=== PATIENT | female | born 1985 | race Caucasian/White ===

== ENCOUNTER 2025-02-14 06:29 | Emergency (ER) | payer OTHER, SELFPAY ==
--- OUTSIDE RECORDS SUMMARY | 2025-02-12 14:40 | XMS_ITS | Encounter Summary ---
Author Organization [facility] Address [address] [place] [address] Care Team Providers Care Computer Game Tester Name Role Phone Jamal Sharif MD Primary Care Provider [phone] Jamal Sharif MD Unavailable [phone] Reason for Referral * Consultation (Routine) - AuthorizedSpecialtyDiagnoses / ProceduresReferred By ContactReferred To ContactCardiology Diagnoses Heart palpitations Procedures [place] OFFICE/OUTPATIENT [facility] 60 MINUTES Sarah Oviedo NP [address] [place] [address] Phone: tel: fax: Sara Butcher MD [address] [place] [address], [address] [address] Phone: tel: fax: Referral IDStatusReasonStart DateExpiration DateVisits RequestedVisits [id number] Specialty Services Required / * Imaging (Routine) - Pending ReviewSpecialtyDiagnoses / ProceduresReferred By ContactReferred To ContactRadiology Diagnoses Heart palpitations Procedures Transthoracic Echo (TTE) Complete Sarah Oviedo NP [address] [place] [address] Phone: tel: fax: [facility] Centralized Scheduling [address] [place] [address] [place] [address] Phone: tel: fax: Referral IDSMihir DateExpiration DateVisits RequestedVisits [id number] Review Perform Procedure / Reason for Visit * ReasonCommentsDizzinessPt here today for dizziness, light headed, heart rate any time she stands up from a squat Encounter Details DateTypeDepartmentCare Team (Latest Contact Info)Zzuwbssxnlq17/28/2025 2:40 PM EDTOffice Visit [facility] [address] [place] [id number] Sarah Oviedo NP [address] [place] [address] PND (post-nasal drip) (Primary Dx); Congestion of nasal sinus; Sinus pressure; Heart palpitations Social History Tobacco UseTypesPacks/DayYears UsedDateSmoking Tobacco: FormerCigarettes Smokeless Tobacco: NeverAlcohol UseStandard Drinks/WeekCommentsYes2 (1 standard drink = 0.6 oz pure alcohol)Caffeine intake: 1 cups per day of coffee, [id number] Health LiteracyAnswerDate RecordedHow often do you need [...] relatives?Once a week11/07/2024How often do you attend amish or restorationism services?Never11/07/2024Do you belong to any clubs or organizations such as amish groups, unions, fraternal or athletic groups, or school groups?No 11/07/2024How often do you attend meetings of the clubs or organizations you belong to?Never11/07/2024re you , , , , never , or living with a partner?Icyhnhf4711/07/2024UDIT-CAnswerDate RecordedQ1: How often do you have a [...] hard at all11/07/2024PHQ-2AnswerDate Recorded Patient Health Questionnaire-2 Zrmdm853Finintermountain medical center [place] of Occupational Health - Occupational Stress QuestionnaireAnswerDate RecordedDo you feel stress - tense, restless, nervous, or anxious, or unable to sleep at night because your mind is troubled all the time - these days?Only a fbujug7411/07/2024Exercise Vital SignAnswerDate RecordedOn average, how many days [...] were you homeless or living in a [place] [facility] [place] (including now)?No11/07/2024CommentsNoSex and Gender InformationValueDate RecordedSex Assigned at BirthNot on fileLegal SexFemale 06/30/2022 7:22 PM EDTGender IdentityNot on fileSexual OrientationNot on file documented as of this encounter Last Filed Vital Signs Vital SignReadingTime TakenCommentsBlood Onlzmoio341/7810 2:46 PM EDT Gtvux425802/12/2025 2:46 PM XFRXepmejvrmqf10.9 ??C (98.4 ??F)02/12/2025 2:46 PM EDTRespiratory Rate--Oxygen Mhhybfjcmw56%02/12/2025 2:46 PM EDTInhaled Oxygen Concentration--Kjzkaf26.5 kg (142 lb 3.2 oz)02/12/2025 2:46 PM CJLGfdcak241.5 cm (5' 2 )02/12/2025 2:46 PM EDTBody Mass Index26.011 2:46 PM EDT documented in this encounter Functional Status * Over the past 2 weeks, how often have you been bothered by any of the following problems?QuestionAnswerDate of AssessmentAuthorLittle interest or pleasure in doing thingsNot at all02/12/2025 2:45 PM EDTMatty Trinheeling down, depressed, or hopelessNot at all02/12/2025 2:45 PM Everardo Rangel Patient Health Questionnaire-2 Dchbx371 2:45 PM Everardo Rangel documented as of this encounter Progress Notes * Sarah Oviedo, HAND I CUTTER - 02/12/2025 2:40 PM EDT Marisela Pacheco [...] no communication within 2 days, [facility]. Encouraged to [...] 11/05/2020 Influenza Vaccine (1) 12/17/2024 COVID-19 Vaccine (4 - 2024- season) 2024 [1] Allergies Allergen [...] Plan of Treatment DateTypeDepartmentCare Team (Latest Contact Info)Pgidftcpqjd56/05/2025 3:40 PM ESTOffice Visit [facility] [address] [place] [address] Sarah Oviedo NP [address] [place] [address] NameTypePriorityAssociated DiagnosesOrder ScheduleTransthoracic Echo (TTE) CompleteEchocardiographyRoutine Heart [...] Jamal Sharif MD [address] [place] [address] PCP - GeneralFamily Medicine09/27/22 Jamal Sharif MD [address] [place] [address] PCP - Medical [place] [employer]09/17/2411documented as of this encounter
[2025-02-14] VITALS (11 sets, daily range): BP systolic 112–126; BP diastolic 78–91; PULSE 80–124; TEMP 36.8; O2SAT 94–100; BMI 24.9
--- NOTE | 2025-02-14 07:04 | ECG_ITS ---
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 Measurements Intervals [place] Rate: 91 P: 63 UT: 132 QRS: 62 QRSD: 86 T: 54 QT: 354 QTc: 403 Interpretive Statements 1100 Sinus rhythm 2420 RSR (QR) in lead V1/V2, consistent with right ventricular conduction delay 9130 borderline ECG No previous ECG available for comparison Electronically Signed On 02-14-2025 13:17:02 EDT by MICHEAL VANEGAS M.D.
[2025-02-14 07:15] LABS: Hematocrit 41.1 % (36.0-48.0); Hemoglobin 14.1 g/dL (12.0-16.0); Immature Granulocytes Abs Auto 0.01 10^3/uL (0.00-0.03); Immature Granulocytes Pct Auto 0.1 % (0.0-0.5); Lymphocytes Absolute Auto 1.8 10^3/uL (1.2-3.8); Mean Corpuscular HGB Conc 34.3 g/dL (29.9-35.2); Mean Corpuscular Hemoglobin 30.0 pg (26.7-34.0); Mean Corpuscular Volume 87.4 fL (81.0-99.0); Platelet Count 376 10^3/uL (150-450); Red Blood Count 4.70 10^6/uL (4.20-5.40); White Blood Count 6.8 10^3/uL (4.0-11.0)
--- OUTSIDE RECORDS SUMMARY | 2025-02-14 07:19 | XMS_ITS | Encounter Summary ---
Author Organization [facility] Address [address] [place] [address] Care Team Providers Care Well Drill Operator Helper Cable Tool Name Role Phone Jamal Sharif MD Primary Care Provider [phone] Jamal Sharif MD Unavailable [phone] Encounter Details DateTypeDepartmentCare Team (Latest Contact Info)Qwtktddsazm66/28/2025Travel Social History Tobacco UseTypesPacks/DayYears UsedDateSmoking Tobacco: FormerCigarettes Smokeless Tobacco: NeverAlcohol UseStandard Drinks/WeekCommentsYes2 (1 standard drink = 0.6 oz pure alcohol)Caffeine intake: 1 cups per day of coffee, [id number] Health LiteracyAnswerDate RecordedHow often do you need [...] relatives?Once a week11/07/2024How often do you attend adventist or oriental orthodox services?Never11/07/2024Do you belong to any clubs or organizations such as adventist groups, unions, fraternal or athletic groups, or school groups?No 11/07/2024How often do you attend meetings of the clubs or organizations you belong to?Never11/07/2024re you , , , , never , or living with a partner?Ofznimv0411/07/2024UDIT-CAnswerDate RecordedQ1: How often do you have a [...] hard at all11/07/2024PHQ-2AnswerDate Recorded Patient Health Questionnaire-2 Bxejv196Finlake[facility] hospital [place] of Occupational Health - Occupational Stress QuestionnaireAnswerDate RecordedDo you feel stress - tense, restless, nervous, or anxious, or unable to sleep at night because your mind is troubled all the time - these days?Only a banqof0611/07/2024Exercise Vital SignAnswerDate RecordedOn average, how many days [...] steady place to sleep or slept in micaelter (including now)?No 05/25/2023Housing Stability Vital SignAnswerDate RecordedIn the last 12 months, was there a time when you were not able to pay the mortgage or rent on time?No 11/07/2024In the past 12 months, how many times have you moved where you were living?t any time in the past 12 months, were you homeless or living in a halfway (including now)?No11/07/2024CommentsNoSex and Gender InformationValueDate RecordedSex Assigned at BirthNot on fileLegal SexFemale 06/30/2022 7:22 PM EDTGender IdentityNot on fileSexual OrientationNot on file documented as of this encounter Functional Status * Over the past 2 weeks, how often have you been bothered by any of the following problems?QuestionAnswerDate of AssessmentAuthorLittle interest or pleasure in doing thingsNot at all02/12/2025 2:45 PM Matty Rangeleeling down, depressed, or hopelessNot at all02/12/2025 2:45 PM Everardo Rangel Patient Health Questionnaire-2 Hlpyz216 2:45 PM Everardo Rangel documented as of this encounter Plan of Treatment DateTypeDepartmentCare Team (Latest Contact Info)Zivlhradlqs36/05/2025 3:40 PM ESTOffice Visit [facility] [address] [place] [address] Sarah Oviedo UTILITY HELICOPTER REPAIRER [address] [place] [address] documented as of this encounter Visit Diagnoses Not on filedocumented in this encounter Care Teams Team MemberRelationshipSpecialtyStart DateEnd Date Jamal Sharif MD [address] [place] [address] [facility] - [facility]/27/22 Jamal Sharif MD [address] [place] [address] PCP - Medical [facility]09/17/2411documented as of this encounter
--- OUTSIDE RECORDS SUMMARY | 2025-02-14 07:19 | XMS_ITS | Encounter Summary ---
Author Organization [facility] Address [address] [place] [address] Phone Care Team Providers Care Head Butler Name Role Phone Sarah Oviedo APRN-HOLLAND Primary Care Provider Encounter Details DateTypeDepartmentCare Team (Latest Contact Info)Msrqigznibb82/29/2025Scanned Document [facility] [address] [place] [phone] Scanning, Generic Provider Social History Tobacco UseTypesPacks/DayYears UsedDateSmoking Tobacco: Never Assessed CommentsUnknownSex and Gender InformationValueDate RecordedSex Assigned at Not on fileLegal GeuBpwogg11/07/2025 1:42 PM EDTGender IdentityNot on fileSexual OrientationNot on filedocumented as of this encounter Plan of Treatment Not on file documented as of this encounter Visit Diagnoses Not on filedocumented in this encounter Care Teams Team MemberRelationshipSpecialtyStart DateEnd Date Sarah Oviedo, PRIMO [address] [place] [address] PCP - GeneralFamily Gghewcet91/29/25documented as of this encounter
--- OUTSIDE RECORDS SUMMARY | 2025-02-14 07:19 | XMS_ITS | Encounter Summary ---
Author Organization [facility] Address [address] [place] [address] Phone Care Team Providers Care Perch Mender Name Role Phone Saarh Oviedo APRN-TECHNOLOGY ADMINISTRATOR Primary Care Provider Encounter Details DateTypeDepartmentCare Team (Latest Contact Info)Vznzmfokcwi50/29/2025Telephone [facility] [address] [address] Generic Provider, No Assigned Pcp, NONE [facility] [place] [address] Social History Tobacco UseTypesPacks/DayYears UsedDateSmoking Tobacco: Never Assessed CommentsUnknownSex and Gender InformationValueDate RecordedSex Assigned at Not on fileLegal LrsFyekvb95/07/2025 1:42 PM EDTGender IdentityNot on fileSexual OrientationNot on filedocumented as of this encounter Miscellaneous Notes * Telephone Encounter - Rabia Eaton - 02/13/2025 3:09 PM EDT Referral DARIA cruz pt lives in [facility] 03/01 @ 9:40 open documented in this encounter Plan of Treatment Not on file documented as of this encounter Visit Diagnoses Not on filedocumented in this encounter Care Teams Team MemberRelationshipSpecialtyStart DateEnd Date Sarah Oviedo, KAPIL-HOLLAND [address] [place] [address] PCP - GeneralFamily Ajvircrl81/29/25documented as of this encounter
--- OUTSIDE RECORDS SUMMARY | 2025-02-14 07:19 | XMS_ITS | Patient Health Record ---
Author Organization [facility] Address [address] [place] [address] Care Team Providers Care Ukrainian Folk Arts Instructor Name Role Phone Merry Vo Primary Care Provider [phone] AilynKierra pagan Unavailable [phone] Sheilarodricksheila Agustin Unavailable [phone] Allergies Allergen (clinical drug ingredient) Drug/Non Drug Allergy documented on EMR Reaction Allergy Type Onset Date Status lurasidone Latuda Unknown Drug Allergy ActivePenicillinUnknownDrug AllergyActive Reason For Referral No Information Medications Medication SIG (Take, Route, Frequency, Duration) Notes Start Date End Date Status Latuda 20 MG Tablet 1 tablet with food Orally On ce a day; Duration: 30 day(s) Not-Taking/PRNlamoTRIgine 200 MG Tablet1 tablet. Take with 100mg to total 300mg daily. Orally Once a day; Duration: 30 daysActivelamoTRIgine 100 MG Tablet1 tablet. (take with 200mg daily to total 300mg daily) Orally Once a day; Duration: 30 daysActivehydrOXYzine Pamoate 50 MG Capsule1 capsule as needed for anxiety Orally every 6 hrsNot-Taking/PRNbuPROPion HCl ER (SR) 100 MG Tablet Extended Release 12 Hour1 tablet in the morning Orally Once a day; Duration: 30 day(s)02/23/2021Not-Taking/PRNViibryd 20 MG Tablet1 tablet with food Orally Once a day; Duration: 30 daysActiveLo Loestrin Fe 1 MG-10 MCG / 10 MCG Tablet1 tablet Orally Once a dayActiveVraylar 1.5 MG Capsule1 capsule Orally Once a day; Duration: 30 daysActiveWegovy 0.25 MG/0.5ML Solution Auto-injector0.5 mL Subcutaneous as directedNot-Taking/PRN Social History Tobacco Use: Social History Observation Description Date Details (start date - stop date) Never Smoker NA - NA Social History GeneralSocial InfoQuestionAnswerNotesDepression Screening (PHQ-9):Little interest or pleasure in doing thingsNot at allFeeling down, depressed, or hopelessNot at allTrouble falling or staying asleep, or sleeping too muchNearly every dayFeeling tired or having little energyNot at allPoor appetite or overeatingNot at allFeeling bad about yourself-or that you are a failure or have let yourself or your family downNot at allTrouble concentrating on things, such as reading the newspaper or watching televisionNot at allMoving or speaking so slowly that other people could have noticed. Or the opposite being so fidgetyor restless that you have been moving around a lot more than usualNot at all Thoughts that you would be better off , or of hurting yourself in some way Not at allTotal Qnuhw5LiuiyhunxlqcxJxbfntg DepressionTobacco Screen:Are you a: never smokerAlcohol Screening:Did you have a drink containing alcohol in the past year?Yes? How often did you have a drink containing alcohol in the past year?Monthly or less (1 point)? How many drinks did you have on a typical day when you were drinking in the past year?1 or 2 (0 points)? How often did you have six or more drinks on one occasion in the past year?Never (0 points)Points1 InterpretationNegativeSection Notes: 0 0 0 0 0 Problems Problem Type SNOMED Code ICD Code Onset Dates Problem Status W/U Status Risk Notes Problem BMI 30+ - obesity (203508418) BMI 32.0-32 .9,adult (Z68.32) ActiveconfirmedProblemBody mass index 30+ - obesity (878923280)BMI 30.0- 30.9,adult (Z68.30)ActiveconfirmedProblemInsomnia (083262672)Insomnia disorder with non-sleep disorder mental comorbidity (G47.00)ActiveconfirmedProblemBipolar disorder (31543589)Bipolar depression (F31.9)ActiveconfirmedProblemPost traumatic stress disorder (70530496)Post traumatic stress disorder (F43.10) Activeconfirmed Vital Signs Heart Rate 86 /min 12/04/2024 Kuqbagnt34 %12/04/2024lood pressure zfdrxowfu09 mm Hg12/04/20245031Qnplmt73 in 08/22/2024lood pressure xdxumgwm851 mm Hg12/04/20245720Hfderv297.0 lbs08/22/2024MI 31.27 kg/m208/22/2024 Encounters Encounter Location Date Provider Diagnosis [facility] [address] [place] [address] 05/30/2024 Merry Vo Insomnia disorder wi th non-sleep disorder mental comorbidity G47.00 [facility] [address] [place] [address] 06/27/2024 Kip Soviak Bipolar depression F31.9 and Insomnia disorder with non-sleep disorder mental comorbidity G47.00 [facility] [address] [place] [address] 06/29/2024 Merry Vo Bipolar depression F31.9 [facility] [address] [place] [address] 08/30/2024 Merry Vo Insomnia disorder wi th non-sleep disorder mental comorbidity G47.00 [facility] [address] [place] [address] 10/03/2024 Merry Vo Bipolar depression F31.9 [facility] [address] [place] [address] 10/15/2024 Merry Vo [facility] [place] [address]/ Merry CoxBipolar depression F31.9[facility] [place] [address]/hristy CoxBipolar depression F31.9[facility] [place] [address]/hristy Vo Bipolar depression F31.9[facility] [place] [address]/5Cheri [facility] [place] [address]/4Christy CoxBipolar depression F31.9 ; Insomnia disorder with non-sleep disorder mental comorbidity G47.00 and Post traumatic stress disorder F43.10[facility] [place] [address]/5Christy CoxBipolar depression F31.9 ; Post traumatic stress disorder F43.10 and Insomnia disorder with non-sleep disorder mental comorbidity G47.00[facility] [place] [address]/5Christy CoxInsomnia disorder with non-sleep disorder mental comorbidity G47.00 and Bipolar depression F31.9[facility] [place] [address]/5Christy CoxBipolar depression F31.9 ; Post traumatic stress disorder F43.10 and Insomnia disorder with non-sleep disorder mental comorbidity G47.00[facility] [place] [address]/5Christy CoxBipolar depression F31.9 ; Post traumatic stress disorder F43.10 and Insomnia disorder with non-sleep disorder mental comorbidity G47.00[facility] [place] [address]/5Christy CoxBipolar depression F31.9[facility] [place] [address]/5Christy CoxBipolar depression F31.9 and Insomnia disorder with non-sleep disorder mental comorbidity G47.00 Assessments Encounter Date Diagnosis (ICD Code) Assessment Notes Treatment Notes Treatment Clinical Notes Section Notes 09/12/2024 Bipolar depression (ICD-10 - F31 .9) Recommended treatment for Bipolar disorder includes FDA approved and OFF label medications: second generation antipsychotics and mood stabilizers. Discussed life threatening side effect of Lamotrigine. Pt is to monitor for new skin rashes or sensation of a sunburn or itchiness or redness, mouth sores or sores in mucus membranes, and call provider immediately and or go to ER, and stop the medication. Second generation antipsychotic medications can cause headache, drowsiness, agitation, dizziness, nausea, or extrapyramidal symptoms such as tremors, muscle spasms, slowness of movement or jerkingof muscles. Stable The patient verbalizes understanding with all questions answered thoroughly and is in agreement with treatment plan. Continue current treatment. . Call for problems . GOALS: . Maintain medication regimen _Improve mood stability _Improve anxiety control _Improve social and interpersonal functioning Patient/Guardian will call sooner if symptoms worsen. Patient understands to go to ER if needed if symptoms become severe. Crisis Intervention plan was discussed and agreed upon. Patient/Guardian will call 911 in case of emergency. Emergency contact information was provided to the patient/guardian. follow up 3 months Pharmacological management: . Alternative medication plans were discussed with the patient/guardian. All relevant side effects and potential adverse effects were discussed with the patient/guardian. Standard cautions and potential benefits were discussed. Patient/Guardian consented to the start/continuation of the treatment. 12/04/2024ipolar depression (ICD-10 - F31.9) Recommended treatment for Bipolar disorder includes FDA approved and OFF label medications: second generation antipsychotics and mood stabilizers. Discussed life threatening side effect of Lamotrigine. Pt is to monitor for new skin rashes or sensation of a sunburn or itchiness or redness, mouth sores or sores in mucus membranes, and call provider immediately and or go to ER, and stop the medication. Second generation antipsychotic medications can cause headache, drowsiness, agitation, dizziness, nausea, or extrapyramidal symptoms such as tremors, muscle spasms, slowness of movement or jerkingof muscles. Stable The patient verbalizes understanding with all questions answered thoroughly and is in agreement with treatment plan. Continue current treatment. Call for problems . GOALS: . Maintain medication regimen _Improve mood stability _Improve anxiety control _Improve social and interpersonal functioning Patient/Guardian will call sooner if symptoms worsen. Patient understands to go to ER if needed if symptoms become severe. Crisis Intervention plan was discussed and agreed upon. Patient/Guardian will call 911 in case of emergency. Emergency contact information was provided to the patient/guardian. follow up 3 months Pharmacological management: . Alternative medication plans were discussed with the patient/guardian. All relevant side effects and potential adverse effects were discussed with the patient/guardian. Standard cautions and potential benefits were discussed. Patient/Guardian consented to the start/continuation of the treatment. 5Bipolar depression (ICD-10 - F31.9) Recommended treatment for Bipolar disorder includes FDA approved and OFF label medications: second generation antipsychotics and mood stabilizers. Discussed life threatening side effect of Lamotrigine. Pt is to monitor for new skin rashes or sensation of a sunburn or itchiness or redness, mouth sores or sores in mucus membranes, and call provider immediately and or go to ER, and stop the medication. Second generation antipsychotic medications can cause headache, drowsiness, agitation, dizziness, nausea, or extrapyramidal symptoms such as tremors, muscle spasms, slowness of movement or jerkingof muscles. Stable The patient verbalizes understanding with all questions answered thoroughly and is in agreement with treatment plan. Continue current treatment. . Call for problems . GOALS: . Maintain medication regimen _Improve mood stability _Improve anxiety control _Improve social and interpersonal functioning Patient/Guardian will call sooner if symptoms worsen. Patient understands to go to ER if needed if symptoms become severe. Crisis Intervention plan was discussed and agreed upon. Patient/Guardian will call 911 in case of emergency. Emergency contact information was provided to the patient/guardian. follow up 3 months Pharmacological management: . Alternative medication plans were discussed with the patient/guardian. All relevant side effects and potential adverse effects were discussed with the patient/guardian. Standard cautions and potential benefits were discussed. Patient/Guardian consented to the start/continuation of the treatment. 4Bipolar depression (ICD-10 - F31.9) Recommended treatment for Bipolar disorder includes FDA approved and OFF label medications: second generation antipsychotics and mood stabilizers. Discussed life threatening side effect of Lamotrigine. Pt is to monitor for new skin rashes or sensation of a sunburn or itchiness or redness, mouth sores or sores in mucus membranes, and call provider immediately and or go to ER, and stop the medication. Second generation antipsychotic medications can cause headache, drowsiness, agitation, dizziness, nausea, or extrapyramidal symptoms such as tremors, muscle spasms, slowness of movement or jerkingof muscles. The patient verbalizes understanding with all questions answered thoroughly and is in agreement with treatment plan. Continue current treatment. Call for problems . GOALS: . Maintain medication regimen _Improve mood stability _Improve anxiety control _Improve social and interpersonal functioning Patient/Guardian will call sooner if symptoms worsen. Patient understands to go to ER if needed if symptoms become severe. Crisis Intervention plan was discussed and agreed upon. Patient/Guardian will call 911 in case of emergency. Emergency contact information was provided to the patient/guardian. follow up 2 months Pharmacological management: . Alternative medication plans were discussed with the patient/guardian. All relevant side effects and potential adverse effects were discussed with the patient/guardian. Standard cautions and potential benefits were discussed. Patient/Guardian consented to the start/continuation of the treatment. 5Bipolar depression (ICD-10 - F31.9) Recommended treatment for Bipolar disorder includes FDA approved and OFF label medications: second generation antipsychotics and mood stabilizers. Discussed life threatening side effect of Lamotrigine. Pt is to monitor for new skin rashes or sensation of a sunburn or itchiness or redness, mouth sores or sores in mucus membranes, and call provider immediately and or go to ER, and stop the medication. Second generation antipsychotic medications can cause headache, drowsiness, agitation, dizziness, nausea, or extrapyramidal symptoms such as tremors, muscle spasms, slowness of movement or jerkingof muscles. Stable The patient verbalizes understanding with all questions answered thoroughly and is in agreement with treatment plan. Continue current treatment. Call for problems . GOALS: . Maintain medication regimen _Improve mood stability _Improve anxiety control _Improve social and interpersonal functioning Patient/Guardian will call sooner if symptoms worsen. Patient understands to go to ER if needed if symptoms become severe. Crisis Intervention plan was discussed and agreed upon. Patient/Guardian will call 911 in case of emergency. Emergency contact information was provided to the patient/guardian. follow up 1 month. Pharmacological management: . Alternative medication plans were discussed with the patient/guardian. All relevant side effects and potential adverse effects were discussed with the patient/guardian. Standard cautions and potential benefits were discussed. Patient/Guardian consented to the start/continuation of the treatment. 5Bipolar depression (ICD-10 - F31.9) Recommended treatment for Bipolar disorder includes FDA approved and OFF label medications: second generation antipsychotics and mood stabilizers. Discussed life threatening side effect of Lamotrigine. Pt is to monitor for new skin rashes or sensation of a sunburn or itchiness or redness, mouth sores or sores in mucus membranes, and call provider immediately and or go to ER, and stop the medication. Second generation antipsychotic medications can cause headache, drowsiness, agitation, dizziness, nausea, or extrapyramidal symptoms such as tremors, muscle spasms, slowness of movement or jerkingof muscles. The patient verbalizes understanding with all questions answered thoroughly and is in agreement with treatment plan. Continue current treatment. Call for problems . GOALS: . Maintain medication regimen _Improve mood stability _Improve anxiety control _Improve social and interpersonal functioning Patient/Guardian will call sooner if symptoms worsen. Patient understands to go to ER if needed if symptoms become severe. Crisis Intervention plan was discussed and agreed upon. Patient/Guardian will call 911 in case of emergency. Emergency contact information was provided to the patient/guardian. follow up 3 months Pharmacological management: . Alternative medication plans were discussed with the patient/guardian. All relevant side effects and potential adverse effects were discussed with the patient/guardian. Standard cautions and potential benefits were discussed. Patient/Guardian consented to the start/continuation of the treatment. 11/29/2024ipolar depression (ICD-10 - F31.9)04/25/2024Post traumatic stress disorder (ICD-10 - F43.10)08/22/2024Post traumatic stress disorder (ICD-10 - F43.10)05/30/2024Insomnia disorder with non-sleep disorder mental comorbidity (ICD-10 - G47.00)06/29/2024ipolar depression (ICD-10 - F31.9)02/21/2024Insomnia disorder with non-sleep disorder mental comorbidity (ICD-10 - G47.00)08/30/2024 Insomnia disorder with non-sleep disorder mental comorbidity (ICD-10 - G47.00) 08/15/2024Insomnia disorder with non-sleep disorder mental comorbidity (ICD-10 - G47.00) . Discussed seriousness of taking benzodiazepine medication daily and as needed, risks and benefits discussed including risk of addiction and accidental . Pt verbalized understanding. . High risk medications are drugs that have a heightened risk of causing significant patient harm when they are used in error. High risk medicines include medicines: with a low therapeutic index. that present a high risk when administered by the wrong route or when other system errors occur. Please notify provider for any concerns about your medications. . 5Bipolar depression (ICD-10 - F31.9)07/18/2024Insomnia disorder with non-sleep disorder mental comorbidity (ICD-10 - G47.00) . Discussed seriousness of taking benzodiazepine medication daily and as needed, risks and benefits discussed including risk of addiction and accidental . Pt verbalized understanding. . High risk medications are drugs that have a heightened risk of causing significant patient harm when they are used in error. High risk medicines include medicines: with a low therapeutic index. that present a high risk when administered by the wrong route or when other system errors occur. Please notify provider for any concerns about your medications. . 07/18/2024ipolar depression (ICD-10 - F31.9) Recommended treatment for Bipolar disorder includes FDA approved and OFF label medications: second generation antipsychotics and mood stabilizers. Discussed life threatening side effect of Lamotrigine. Pt is to monitor for new skin rashes or sensation of a sunburn or itchiness or redness, mouth sores or sores in mucus membranes, and call provider immediately and or go to ER, and stop the medication. Second generation antipsychotic medications can cause headache, drowsiness, agitation, dizziness, nausea, or extrapyramidal symptoms such as tremors, muscle spasms, slowness of movement or jerkingof muscles. Stable The patient verbalizes understanding with all questions answered thoroughly and is in agreement with treatment plan. Continue current treatment with addition of Viibryd. . Call for problems . GOALS: . Maintain medication regimen _Improve mood stability _Improve anxiety control _Improve social and interpersonal functioning Patient/Guardian will call sooner if symptoms worsen. Patient understands to go to ER if needed if symptoms become severe. Crisis Intervention plan was discussed and agreed upon. Patient/Guardian will call 911 in case of emergency. Emergency contact information was provided to the patient/guardian. follow up 1 month. Pharmacological management: . Alternative medication plans were discussed with the patient/guardian. All relevant side effects and potential adverse effects were discussed with the patient/guardian. Standard cautions and potential benefits were discussed. Patient/Guardian consented to the start/continuation of the treatment. 12/04/2024Post traumatic stress disorder (ICD-10 - F43.10)5Bipolar depression (ICD-10 - F31.9)10/30/2024ipolar depression (ICD-10 - F31.9) 10/31/2024ipolar depression (ICD-10 - F31.9)06/27/2024Insomnia disorder with non-sleep disorder mental comorbidity (ICD-10 - G47.00)12/04/2024Insomnia disorder with non-sleep disorder mental comorbidity (ICD-10 - G47.00)02/21/2024 Post traumatic stress disorder (ICD-10 - F43.10)08/22/2024Insomnia disorder with non-sleep disorder mental comorbidity (ICD-10 - G47.00)04/25/2024Insomnia disorder with non-sleep disorder mental comorbidity (ICD-10 - G47.00) Plan Of Treatment No Information Insurance Providers Payer Name Payer Address Payer Phone Subscriber Number Group Number Insured Name Patient Relationship to Insured Coverage Start Date Coverage End Date [facility] [address] [place] [address] [id number] STEVAN MENDOZAY Self - patient is the insured [employer] [address] [address] [place] [phone] [id number], COTYSelf - patient is the [id number] [address] [place] [id number] LOUANN, COTYSelf - patient is the [id number] [address] [place] [id number], COTYSelf - patient is the [id number] [facility] [address] [place] [id number], ERINSpouse - patient is the spouse of the [id number] [address] [address] [place] [phone], COTYSelf - patient is the [id number] Medical (General) History Medical History History ICD Code bipolar PTSDSurgical History Surgery Date(Month/Year) [id number] knee surgeryHospitalization History Reason Date(Month/Year) 1 [facility]- panic attacks, suicidal id eation. 5 days 2020
--- OUTSIDE RECORDS SUMMARY | 2025-02-14 07:19 | XMS_ITS | Clinical Summary ---
Author Organization [facility] Address [address] [place] [address] Care Team Providers Care Cardiac/Vascular Sonographer Name Role Phone Jamal Sharif MD Primary Care Provider [phone] Jamal Sharif MD Unavailable [phone] Allergies Active AllergyReactionsCriticalityNoted DateCommentsAnti-Hcorjub9611/16/2022 Other Reaction(s): Unknown cause B Complex-S27Rcthqnc15/04/2022alanced B-100GI ksysbladllv14/31/2023icyclomine Xdembyx8111/16/2022Ferrous LzdwwfnCuwhscb15/01/2023Hydrocodone-AcetaminophenNausea Only,Pgftzds4005/22/2021 Other Reaction(s): Nausea Alone ineffective IronGI ufjzaznsutb66/31/4852PgxincdxhzMvxnirs63/05/2023enicillin GHives 09/15/2022Vitamin DEBBIE opydbkssbkj54/31/2023Vitamin D (Calciferol)GI intolerance 09/15/2022Vitamin EGI vfedohtwpxs37/31/2023 Medications MedicationSigDispense QuantityRefillsLast FilledStart DateEnd DateStatus Vraylar 1.5 MG capsule 1 capsule 1 (one) time each day at the same time.Active LaMICtal 200 MG tablet Take 200 mg by mouth in the morning.Active temazepam (Restoril) 15 MG capsule Take 15 mg by mouth at bedtimeActive meloxicam (Mobic) 15 MG tablet Indications:Cervical painTAKE 1 TABLET BY MOUTH EVERY DAY 30 tablet 4Active vilazodone (Viibryd) 10 mg tablet 5Active tiZANidine (Zanaflex) 4 MG tablet Indications:Chronic thoracic back pain, unspecified back pain lateralityTAKE 1 TABLET BY MOUTH AT BEDTIME 90 tablet 1085Active Lo Loestrin Fe 1 MG-10 MCG / 10 MCG tablet Indications:Abnormal menses,Painful menstrual periods,PMS (premenstrual syndrome)TAKE 1 TABLET BY MOUTH EVERY DAY 84 tablet 3085Active azithromycin (Zithromax) 250 MG tablet Indications:Congestion of nasal sinus,Sinus pressure2 tabs PO day 1, 1 tab PO day 2-5 6 tablet 5Active Active Problems ProblemNoted DateDiagnosed QdcfWpruzqq37/13/2023ody mass index (BMI) 32.0-32.9, adult02/28/2023ody mass index (BMI) 30.0-30.9, adult3Posttraumatic stress rpnihnrq27/13/2023ttention deficit hyperactivity disorder (ADHD), predominantly inattentive type09/15/2022ipolar affective disorder in remission 3Chronic cckwwejxdb98/31/2023Chronic xcbqbav31/31/2023Chronic pain 09/15/2022Excessive kqhfms4609/15/2022astroesophageal reflux wcnkwxa4409/15/2022 Seasonal /31/7365Jvklwljodsy55/31/2023Weight gain09/15/2022ipolar dlrrpwre33/19/2021Class 2 eajmlql0109/04/2020ttention deficit hyperactivity disorder, predominantly inattentive type07/31/2020Irritable bowel syndrome with ryaakjvv02/20/2015 Encounters DateTypeDepartmentCare EmkkEgsxqbntays55/28/2025 2:40 PM EDTOffice Visit [facility] [address] [place] [address] Sarah Oviedo NP PND (post-nasal drip) (Primary Dx); Congestion of nasal sinus; Sinus pressure; Heart rmeeldarzaps91/28/2025amboo flowsheet [facility] [address] [place] [phone] Sarah Oviedo NP 02/12/20257906Kmhvzd40/20/2025 3:40 PM EDTTelemedicine [place] [address] [place] [address] Sarah Oviedo, NICOLE Skin yeast infection (Primary Dx); Rash; Aqkxhak8912/05/2024amboo flowsheet [facility] [address] [place] [address] Sarah Oviedo NP 12/05/20242493Rczlez08/09/20[address] [address] [place] [address] Sarah Oviedo, PEOPLESOFT Abnormal menses; Painful menstrual periods; PMS (premenstrual syndrome)[address] [address] [place] [address] Jamal Sharif MD Chronic thoracic back pain, unspecified back pain lateralityfrom Last 3 Months Immunizations ImmunizationAdministration DatesNext DueDTaP, 5 pertussis ypxqmhxu52/01/1993, 10/26/1989,06/16/1988,05/01/1988,02/11/1988HPV, Ybrcgxln09/13/2013Hep B, Adolescent or Knugkljfr14/31/2007,12/15/2005,09/18/2005,08/17/2000,06/22/2000Hib (PRP-T)12/29/1989IPV1,07/17/1992,10/26/1989,04/21/1988,02/11/1988 Influenza, injectable, gyvsyjotfzta70/29/2019Influenza, injectable, quadrivalent, preservative free01/25/2018,02/26/2016,01/04/2014Influenza, seasonal, injectable, preservative free02/10/2015MMR08/26/2006,06/22/2000, 10/26/1989MMRV08/26/2006Meningococcal JBC7I8908/26/2006Tdap11/05/2010,07/27/2010, 08/26/20066601Asibwbmms59/11/2007 Family History Medical HistoryRelationNameCommentsDiabetesBrotherHeart diseaseFather HypertensionFatherHeart diseaseMaternal GrandfatherHypertensionMaternal GrandfatherVaricose VeinsMaternal GrandfatherRelationNameStatusCommentsBrother Yjheyxtef4MxoydcUftsrWhswgmtr VfeuqymdqqhWxegijYzudrUjgcvgPlgjru1Pati9 Social History Tobacco UseTypesPacks/DayYears UsedDateSmoking Tobacco: FormerCigarettes Smokeless Tobacco: Never Tobacco Cessation:Counseling Given: Not Answered Alcohol UseStandard Drinks/WeekCommentsYes2 (1 standard drink = 0.6 oz pure alcohol)Caffeine intake: 1 cups per day of coffee, [id number] Health Literacy AnswerDate RecordedHow often do you need to have someone help you when you read instructions, pamphlets, or other written material from your doctor or pharmacy? Never11/07/2024Humiliation, Afraid, Rape, and Kick questionnaireAnswerDate RecordedWithin the last year, have you been afraid of your partner or ex-partner?No11/07/2024Within the last year, have you been humiliated or emotionally abused in other ways by your partner or ex-partner?No11/07/2024 Within the last year, have you been kicked, [...] relatives?Once a week11/07/2024How often do you attend anabaptist or roman catholic services?Never11/07/2024Do you belong to any clubs or organizations such as anabaptist groups, unions, fraternal or athletic groups, or school groups?No 11/07/2024How often do you attend meetings of the clubs or organizations you belong to?Never11/07/2024re you , , , , never , or living with a partner?Mqlpmlm7811/07/2024UDIT-CAnswerDate RecordedQ1: How often do you have a [...] hard at all11/07/2024PHQ-2AnswerDate Recorded Patient Health Questionnaire-2 [facility]301[facility] [place] of Occupational Health - Occupational Stress QuestionnaireAnswerDate RecordedDo you feel stress - tense, restless, nervous, or anxious, or unable to sleep at night because your mind is troubled all the time - these days?Only a hzdgza0911/07/2024Exercise Vital SignAnswerDate RecordedOn average, how many days [...] steady place to sleep or slept in [place] (including now)?No 05/25/2023Housing Stability Vital SignAnswerDate RecordedIn the last 12 months, was there a time when you were not able to pay the mortgage or rent on time?No 11/07/2024In the past 12 months, how many times have you moved where you were living?t any time in the past 12 months, were you homeless or living in a fci (including now)?No11/07/2024CommentsNoSex and Gender InformationValueDate RecordedSex Assigned at BirthNot on fileLegal SexFemale 06/30/2022 7:22 PM EDTGender IdentityNot on fileSexual OrientationNot on file Last Filed Vital Signs Vital SignReadingTime TakenCommentsBlood Kgsixrao202/7802/12/2025 2:46 PM EDT Ytocb112702/12/2025 2:46 PM LPLGulutmjtnfe61.9 ??C (98.4 ??F)02/12/2025 2:46 PM EDTRespiratory Rate--Oxygen Hblxzqehid37%02/12/2025 2:46 PM EDTInhaled Oxygen Concentration--Lwhclf70.5 kg (142 lb 3.2 oz)02/12/2025 2:46 PM CFLEzqpom949.5 cm (5' 2 )02/12/2025 2:46 PM EDTBody Mass Index26.011 2:46 PM EDT Plan of Treatment DateTypeDepartmentCare Team (Latest Contact Info)Msxpqpxbreb02/05/2025 3:40 PM ESTOffice Visit [facility] [address] [place] [phone] Sarah Oviedo NP [address] [place] [address] Health MaintenanceDue DateLast DoneCommentsVaricella Vaccines (2 of 2 - 13+ 2- dose series), 08/26/2006HPV Vaccines (2 - 3-dose series) DTaP/Tdap/Td Vaccines (9 - Td or Tdap), 07/27/2010, 08/26/2006, Additional history existsCOVID-19 Vaccine ( season)/07/2020, 04/28/2020, 04/04/2020Influenza Vaccine (#1) , 01/25/2018, 02/26/2016, Additional history existsPap Smear ervical Cancer Fpreiqast51/18/2029HPV/Kwwgzy6101/03/2029 01/04/2024, 06/22/2019HIB WthfiblqPchjdbmxm10/13/1990IPV VaccinesCompleted 02/10/1998, 07/17/1992, 10/26/1989, Additional history existsHepatitis B BoatkxmrMilnrewkv37/31/2007, 12/15/2005, 09/18/2005, Additional history exists MMR WumahqoaOylcbmnnu39/11/2007, 08/26/2006, 06/22/2000, Additional history existsMeningococcal TwsmcahExbqjrplz93/11/2007Hepatitis A VaccinesAged OutNo longer eligible based on patient's age to complete this topicMeningococcal B VaccineAged OutNo longer eligible based on patient's age to complete this topic Pneumococcal Vaccine: Pediatrics (0 to 5 Years) and At-Risk Patients (6 to 64 Years)Aged OutNo longer eligible based on patient's age to complete this topic Rotavirus VaccinesAged OutNo longer eligible based on patient's age to complete this topic Procedures Procedure NamePriorityDate/TimeAssociated DiagnosisCommentsTHIN PREP TIS PAP AND HR HPV FSPOnhbkme85/18/2024 4:53 PM EDT from Last 3 Months or Most Recently Relevant to Health Maintenance Results * THIN PREP TIS PAP AND HR HPV DNA (01/04/2024 4:53 PM EDT)ComponentValueRef RangeTest MethodAnalysis TimePerformed AtPathologist SignatureCLINICAL INFORMATIONQUESTComment:None givenLMPQUESTComment:NONE GIVENPREV. PAPQUEST Comment:NONE GIVENPREV. BXQUESTComment:NONE GIVENSOURCEQUESTComment:None given STATEMENT OF ADEQUACYQUESTComment: Specimen processed and examined, but unsatisfactory for evaluation due to an insufficient number of squamous cells. INTERPRETATION/RESULTQUESTComment: Cytology Results: Unable to provide interpretation due to unsatisfactory specimen adequacy. COMMENTQUESTComment: This Pap test has been evaluated with computer assisted technology. CYTOTECHNOLOGISTQUESTComment: [facility], CT(ASCP) CT screening location: [employer] [facility], [address] [place] [address]. REVIEW CYTOTECHNOLOGISTQUESTComment: MRS CT(ASCP) CT screening location: [facility] [place], [address] [place] [address]. (ALWAYS MESSAGE)QUESTComment: EXPLANATORY NOTE: The Pap is a screening test for cervical cancer. It is not a diagnostic test and is subject to false negative and false positive results. It is most reliable when a satisfactory sample, regularly obtained, is submitted with relevant clinical findings and history, and when the Pap result is evaluated along with historic and current clinical information. HPV DNA, HIGH RISK, CERVICALNot DetectedNOT DETECTEDQUESTComment: Not Detected High Risk HPV types (16,18,31,33,35,39,45,51,52, 56,58,59,66,68) were not detected. Other HPV types which cause anogenital lesions may be present. The significance of the other types of HPV in malignant processes has not been established. Methodology: Real Time PCR Specimen (Source)Anatomical Location / LateralityCollection Method / Volume Collection TimeReceived Time01/04/2024 4:53 PM EDT01/06/2024 3:19 AM EDT Narrative Resulting Agency Comment Performing Organization Information ?Site ID: AMD ?Name: [facility] ?Address: [address] [place] [address] [address] [place] ?Director: Mannie Worrell M.D.,PhD ?Site ID: [id number] ?Name: [facility] ?Address: [address] [place] [id number] ?Director: Christiano Concepcion MD Authorizing ProviderResult TypeResult StatusDadakotah Oviedo [facility] CYTOLOGY ORDERABLESFinal ResultPerforming OrganizationAddressCity/State/ZIP CodePhone Number [facility] from Last 3 Months or Most Recently Relevant to Health Maintenance Insurance MemberSubscriberPlan / Payer (Effective 2023-Present)Name:Marisela Pacheco Relation to Subscriber:SelfName:Marisela Pacheco Payer ID:Not on file Type:Not on file Address: [facility] [address] [phone] Care Teams Team MemberRelationshipSpecialtyStart DateEnd Date Jamal Sharif MD [address] [place] [address] PCP - GeneralFamily Medicine09/27/22 Jamal Sharif MD [address] [place] [address] PCP - Medical [place] [employer]09/17/2411
--- OUTSIDE RECORDS SUMMARY | 2025-02-14 07:19 | XMS_ITS | Clinical Summary ---
Author Organization [facility] Address [address] [place] [address] Phone Care Team Providers Care Filter Assembler Name Role Phone Sarah Oviedo [employer] [facility] [facility] Primary Care Provider Allergies Active AllergyReactionsCriticalityNoted CekxAiwmgljfTecffiifjbmEoshldr85/21/2025 Ferrous HvelvmjFeltsst87/21/2025Hydrocodone-LciranokbbcsvTckydtd10/21/2025 ineffective ChrlkqbsjwPzdvpiq03/21/2025 Medications MedicationSigDispense QuantityRefillsLast FilledStart DateEnd DateStatus vilazodone (Viibryd) 10 mg tablet TAKE 1 TABLET BY MOUTH EVERY DAY WITH FOOD FOR 30 DAYS5Active tiZANidine (Zanaflex) 4 mg tablet Take 1 tablet (4 mg) by mouth once daily at bedtime.5Active temazepam (Restoril) 15 mg capsule once every 24 hours.5Active Lo Loestrin Fe 1 mg-10 mcg (24)/10 mcg (2) tablet Take 1 tablet by mouth once daily.Active meloxicam (Mobic) 15 mg tablet Take 1 tablet (15 mg) by mouth early in the morning..4Active lamoTRIgine (LaMICtal) 200 mg tablet TAKE 1 TABLET BY MOUTH EVERY DAY WITH 100 MG TABLETActive Vraylar 1.5 mg capsule Take 1 capsule (1.5 mg) by mouth once daily.Active Encounters DateTypeDepartmentCare MsnsYpsbfcyutaw09/29/2025Telephone [facility] [address] [address] Generic Provider, No Assigned Pcp, 02/13/2025Scanned Document [facility] [address] [place] [address] Scanning, Generic Provider from Last 3 Months Social History Tobacco UseTypesPacks/DayYears UsedDateSmoking Tobacco: Never Assessed CommentsUnknownSex and Gender InformationValueDate RecordedSex Assigned at Not on fileLegal XohSwqqja48/07/2025 1:42 PM EDTGender IdentityNot on fileSexual OrientationNot on file Last Filed Vital Signs Vital SignReadingTime TakenCommentsBlood Pressure--Pulse--Temperature-- Respiratory Rate--Oxygen Saturation--Inhaled Oxygen Concentration--Dozahu74.3 kg (166 lb)11/05/2024 8:41 AM KKMMklklw991.5 cm (5' 2 )11/05/2024 8:41 AM EDTBody Mass Index30.36011/05/2024 8:41 AM EDT Plan of Treatment Health MaintenanceDue DateLast DoneCommentsHIV Ymyorifuw47/08/1988Lipid Panel 1987Hepatitis C Yeneabdma30/08/2006Cervical Cancer Abbxqayqf24/08/2009 HPV/Ephilk2411/23/2008Pap Smear11/23/2008HPV Vaccines (2 - 3-dose series) DTaP/Tdap/Td Vaccines (10 - Td or Tdap), 08/06/2010, 07/27/2010, Additional history existsInfluenza Vaccine (#1) , 01/25/2018, 02/26/2016, Additional history existsYearly Adult Qouaxcsa04/04/2023, 07/28/2023, 02/28/2023OVID-19 Vaccine ( season)2024Zoster Vaccines (1 of 2), 08/26/2006HIB GfrfkewjSctsxedmv61/13/1990IPV MyvdndpiQqruedboc73/26/1998, 07/17/1992, 10/26/1989, Additional history existsHepatitis B VaccinesCompleted 05/18/2006, 12/15/2005, 09/18/2005, Additional history existsMMR Vaccines Azplxyleq08/11/2007, 08/26/2006, 06/22/2000, Additional history exists Meningococcal DlammazMfkrfuntw92/11/2007Hepatitis A VaccinesAged OutNo longer eligible based on patient's age to complete this topicPneumococcal Vaccine: Pediatrics and At-Risk Adult PatientsAged OutNo longer eligible based on patient's age to complete this topicRotavirus VaccinesAged OutNo longer eligible based on patient's age to complete this topic Insurance MemberSubscriberPlan / Payer (Effective 2024-Present)Name:Junior Marisela Relation to Subscriber:SelfName:Ann Pachecoy Payer ID:[id number] (NAIC) Type:Not on file Address: [address] [place] [id number] Care Teams Team MemberRelationshipSpecialtyStart DateEnd Date Sarah Oviedo, [employer] CLERK [address] [place] [address] PCP - GeneralFamily Zfnocmch75/29/25
--- OUTSIDE RECORDS SUMMARY | 2025-02-14 07:19 | XMS_ITS | Encounter Summary ---
Author Organization [facility] Address [address] [place] [address] Care Team Providers Care Senior Windows Systems Administrator Name Role Phone Jamal Sharif MD Primary Care Provider [phone] Jamal Sharif MD Unavailable [phone] Encounter Details DateTypeDepartmentCare Team (Latest Contact Info)Meqzxtvgdka39/28/2025amboo flowsheet [facility] [place] [facility] [address] [place] [address] Sarah Oviedo, AIRPORT OPERATIONS DUTY MANAGER [address] [place] [address] Social History Tobacco UseTypesPacks/DayYears UsedDateSmoking Tobacco: FormerCigarettes Smokeless Tobacco: NeverAlcohol UseStandard Drinks/WeekCommentsYes2 (1 standard drink = 0.6 oz pure alcohol)Caffeine intake: 1 cups per day of coffee, [id number] Health LiteracyAnswerDate RecordedHow often do you need [...] relatives?Once a week11/07/2024How often do you attend hoahaoism or presybeterian services?Never11/07/2024Do you belong to any clubs or organizations such as hoahaoism groups, unions, fraflikdate or athletic groups, or school groups?No 11/07/2024How often do you attend meetings of the clubs or organizations you belong to?Never11/07/2024re you , , , , never , or living with a partner?Kfomjdi1511/07/2024UDIT-CAnswerDate RecordedQ1: How often do you have a [...] hard at all11/07/2024PHQ-2AnswerDate Recorded Patient Health Questionnaire-2 Vwllw476Finbrigham [facility] [place] of Occupational Health - Occupational Stress QuestionnaireAnswerDate RecordedDo you feel stress - tense, restless, nervous, or anxious, or unable to sleep at night because your mind is troubled all the time - these days?Only a tixjnz9811/07/2024Exercise Vital SignAnswerDate RecordedOn average, how many days [...] steady place to sleep or slept in [place] (including now)?No 05/25/2023Housing Stability Vital SignAnswerDate RecordedIn the last 12 months, was there a time when you were not able to pay the mortgage or rent on time?No 11/07/2024In the past 12 months, how many times have you moved where you were living?t any time in the past 12 months, were you homeless or living in a custodial (including now)?No11/07/2024CommentsNoSex and Gender InformationValueDate RecordedSex Assigned at BirthNot on fileLegal SexFemale 06/30/2022 7:22 PM EDTGender IdentityNot on fileSexual OrientationNot on file documented as of this encounter Plan of Treatment DateTypeDepartmentCare Team (Latest Contact Info)Ualdkaeaumv70/05/2025 3:40 PM ESTOffice Visit [facility] [address] [place] [phone] Sarah Oviedo NP [address] [place] [address] documented as of this encounter Visit Diagnoses Not on filedocumented in this encounter Care Teams Team MemberRelationshipSpecialtyStart DateEnd Date Jamal Sharif MD [address] [place] [address] [facility] - [facility] Jamal Sharif MD [address] [place] [address] PCP - Medical [facility]09/17/2411documented as of this encounter
--- NOTE | 2025-02-14 07:25 | XR_ITS ---
[facility] [place] [id number] Patient Name: YARELI MENDOZA MRN: [id number] date: 1985 Sex: F Assigned Patient Location: ED.MAIN Current Patient Location: Accession/Order Number: [id number] Exam Date: 02/14/2025 07:20 Report Date: 02/14/2025 08:28 At the request of: ANAIS SANTIAGO Procedure: XR chest 1V Single view chest: CLINICAL HISTORY: chest pain COMPARISON: None FINDINGS: The heart is normal in size. The lungs are clear. The pulmonary vasculature is normal. Mediastinum and hilar regions are unremarkable. No pleural effusions are seen. Visualized bones are intact. XR/XR chest 1V IMPRESSION: NO ACUTE PROCESS. Impression dictated by: Jarvis Swift Jr., D.O. 02/14/2025 8:28 AM Dictation Location: [place] [address] Electronically authenticated by: [id number] Y Date: 02/14/2025 08:28
[2025-02-14 07:32] LABS: Anion Gap 15.0; Blood Urea Nitrogen 6.0 mg/dL (7.0-18.0); Calcium 9.3 mg/dL (8.5-10.1); Carbon Dioxide 24.8 mmol/L (21.0-32.0); Chloride 103 mmol/L (98-107); Estimated GFR (African America >60 (>=60 mL/min/1.73m^2); Estimated GFR (Non-African Ame >60 (>=60 mL/min/1.73m^2); Glucose 102 mg/dL (74-106); NT Pro B Type Natriuretic Pept 64.0 pg/mL (<=450.0); Sodium 140 mmol/L (136-145)
[2025-02-14 07:37] LABS: Potassium 2.8 mmol/L (3.5-5.1)
--- NOTE | 2025-02-14 07:42 | ED_ITS ---
HPI HPI - General Adult General Chief complaint: Chest Pain Stated complaint: CHEST PAIN & FAST HEART RATE Time Seen by Provider: 02/14/25 07:02 Source: patient Mode of arrival: walk-in Limitations: no limitations History of Present Illness HPI narrative: cc - fast/racing heart Pt states that she got influenza vax around 02/04 and since then has been experiencing rapid heart rate. This morning while in the shower, her watch noted her HR was 140bpm so she came to the ED for evaluation. No recent fever or chills. No recent illness. She admits to intermittent pains in the chest, occasional shortness of breath and dizziness. She described the pain as dull and achy from the left chest into the left shoulder and left back. Stopped drinking caffeine after the symptoms developed. She told me that she fell a few days ago and that is when the pain started to the left chest, left shoulder and back She already saw her PCP about these symptoms - they did not order any blood testing or EKG but they did tell her that they were going to order an echocardiogram - she has yet to get that scheduled. Related Data Home Medications ?Medication ?Instructions ?Recorded ?Confirmed cariprazine 1.5 mg capsule 1.5 mg PO DAILY 02/14/25 (Vraylar) lamotrigine 200 mg tablet 300 mg PO DAILY 02/14/25 (Lamictal) norgestimate 0.18 mg/0.215mg/0.25 1 tab PO DAILY 02/1402/14/25 mg-ethinyl estradiol 0.025 mg tablet (Jbg-Ma-Ycmmzmltl) temazepam 15 mg capsule (Restoril) 15 mg PO DAILY 01/1802/14/25 tizanidine 2 mg capsule 2 mg PO DAILY 02/14/2502/14 Previous Rx's ?Medication ?Instructions ?Recorded potassium chloride 10 mEq 20 meq (2 x 10 mEq) PO BID # 10 caps 02/14/25 capsule,extended release Allergies Allergy/AdvReac Type Severity Reaction Status Date / Time Penicillins Allergy Hives Verified 02/14/25 06:39 Opioid HPI Opioid Management Most Recent Opioid Data: Last Pain Scale 4 Today, 06:44 PFSH PFSH Social History Little interest or pleasure in doing things: not at all Feeling down, depressed, or hopeless: not at all Exam Narrative Exam Narrative: Nurses notes and vital signs reviewed and patient is not hypoxic. afebrile General: Well-appearing and in no apparent distress. Skin: Warm, dry, no pallor noted. No rash. Eye: Pupils are equal, round and EOMI. No scleral icterus. Ears, Nose, Mouth, and Throat: Oral mucosa is moist Cardiovascular: Regular Rate and Rhythm without murmur, gallop or rub. Respiratory: No accessory muscle use or respiratory distress. Lungs are clear to auscultation, no wheezing, rales or rhonchi Chest Wall: diffuse left anterolateral tenderness without crepitus or subcutaneous emphysema Back: No midline thoracic or lumbar vertebral tenderness. No CVA tenderness Musculoskeletal: normal ROM, no calf or popliteal tenderness, no lower extremity edema/swelling GI: Abdomen is soft, non-distended. Normal bowel sounds. No tenderness to palpation. No rebound, guarding, or rigidity noted. Neurological: A&O x4. No cranial nerve dysfunction observed. No truncal ataxia. Moves all extremities. Sensation intact. Psychiatric: Cooperative and interactive. Normal mood and affect. Constitutional Vital Signs, click to edit/add: Last Vital Signs Temp 98.2 F 02/14/25 06:33 Pulse 86 02/14/25 07:50 Resp 21 H 02/14/25 07:50 BP 126/91 02/14/25 06:36 Pulse Ox 98 02/14/25 07:50 O2 Del Method Room Air 02/14/25 06:33 Course Vital Signs Vital signs: Vital Signs Temperature 98.2 F 02/14/25 06:33 Pulse Rate 102 H 02/14/25 06:33 Respiratory Rate 18 02/14/25 06:33 Blood Pressure 126/91 02/14/25 06:33 Pulse Oximetry 98 02/14/25 06:33 Oxygen Delivery Method Room Air 02/14/25 06:33 Temperature 98.2 F 02/14/25 06:33 Pulse Rate 86 02/14/25 07:50 Respiratory Rate 21 H 02/14/25 07:50 Blood Pressure 126/91 02/14/25 06:36 Pulse Oximetry 98 02/14/25 07:50 Oxygen Delivery Method Room Air 02/14/25 06:33 Medical Decision Making MDM Narrative Medical decision making narrative: Patient was placed on threat monitoring analyst and EKG obtained. Blood drawn and sent for evaluation. Chest x-ray obtained. Potassium was found to be decreased at 2.8. She was given oral potassium pills. She already has follow-up with her primary care physician including an echoca rdiogram that has yet to be scheduled. She was discharged home with prescription for additional potassium and will follow-up with her PCP as scheduled. Lab Data Lab results reviewed: Yes I reviewed the patient's lab results Labs: Lab Results 02/14/25 Range/Units 06:45 WBC 6.8 (4.0-11.0) 10^3/uL RBC 4.70 (4.20-5.40) 10^6/uL Hgb 14.1 (12.0-16.0) g/dL Hct 41.1 (36.0-48.0) % MCV 87.4 (81.0-99.0) fL MCH 30.0 (26.7-34.0) pg MCHC 34.3 (29.9-35.2) g/dL RDW 11.5 (11.0-15.0) % Plt Count 376 (150-450) 10^3/uL MPV 9.5 (9.5-13.5) fL Neut % (Auto) 60.9 (43.0-75.0) % Lymph % (Auto) 26.1 (20.5-60.0) % Glascock % (Auto) 8.0 (1.7-12.0) % Eos % (Auto) 4.0 (0.9-7.0) % Baso % (Auto) 0.9 (0.2-2.0) % Neut # (Auto) 4.1 (1.4-6.5) 10^3/uL Lymph # (Auto) 1.8 (1.2-3.8) 10^3/uL Glascock # (Auto) 0.5 (0.3-0.8) 10^3/uL Eos # (Auto) 0.3 (0.0-0.7) 10^3/uL Baso # (Auto) 0.1 (0.0-0.1) 10^3/uL Abs Immat Gran (auto) 0.01 (0.00-0.03) 10^3/uL Imm/Tot Granulo (auto) 0.1 (0.0-0.5) % D-Dimer <0.19 (<=0.59) mg/L FEU Sodium 140 (136-145) mmol/L Potassium 2.8 L* (3.5-5.1) mmol/L Chloride 103 (98-107) mmol/L Carbon Dioxide 24.8 (21.0-32.0) mmol/L Anion Gap 15.0 BUN 6.0 L (7.0-18.0) mg/dL Creatinine 0.64 (0.55-1.02) mg/dL Est GFR ( Amer) >60 (>=60 mL/min/1.73m^2) Est GFR (Non-Af Amer) >60 (>=60 mL/min/1.73m^2) BUN/Creatinine Ratio 9.4 Glucose 102 (74-106) mg/dL Calcium 9.3 (8.5-10.1) mg/dL Troponin I High Sens <4.0 L (4.0-51.3) pg/mL NT-Pro-B Natriuret Pep 64.0 (<=450.0) pg/mL Imaging Data Chest x-ray: Attestation: I personally reviewed and interpreted this imaging study as follows: My impression: No pneumothorax, no effusion, no infiltrate, no consolidation, no evidence of rib fracture or other bony abnormality. ECG Data Attestation: I personally reviewed and interpreted this ECG as follows: Interpretation: EKG interpretation:Emergency Department physician interpretation.Normal sinus rhythm at 91bpm.RSR in lead V1/V2, consistent with right ventricular conduction delay. Normal axis, normal intervals and no ST segment elevation or depression. Discharge Plan Discharge Chief Complaint: Chest Pain Clinical Impression: Acute hypokalemia, Chest pain, Tachycardia Patient Disposition: Home, Self-Care Time of Disposition Decision: 07:47 Prescriptions / Home Meds: New potassium chloride 10 mEq capsule, extended release 20 meq PO BID Qty: 10 0RF No Action Vraylar 1.5 mg capsule 1.5 mg PO DAILY lamotrigine [Lamictal] 200 mg tablet 300 mg PO DAILY temazepam [Restoril] 15 mg capsule 15 mg PO DAILY norgestimate-ethinyl estradiol [Fmr-Zd-Bvgqtzazn] 0.18/0.215/0.25 mg-0.025 mg tablet 1 tab PO DAILY tizanidine 2 mg capsule 2 mg PO DAILY Print Language: Korean Instructions: Chest Pain (ED), Hypokalemia (ED), Tachycardia (ED) Referrals: Sarah Oviedo SECURITY AND COMPLIANCE PROJECT MANAGER [Primary Care Provider] - 1 week
[2025-02-14] MEDS: POTASSIUM CHLORIDE 10 MEQ ER TABLET 40 MEQ PO (07:51)
== END 2025-02-14 08:04 | disposition home or self-care (01) ==
PROVIDERS: Emergency Provider Emergency Medicine; PCP Nurse Practitioner Family
DX: E87.6 Hypokalemia (principal); R07.89 Other chest pain; R00.0 Tachycardia, unspecified; R06.02 Shortness of breath; R42 Dizziness and giddiness
CPT/HCPCS: 36415; 71045; 80048; 83880; 84484; 85025; 85378; 93005; 99285

== ENCOUNTER 2025-02-25 12:23 | Outpatient (OUT) | payer OTHER, SELFPAY ==
--- OUTSIDE RECORDS SUMMARY | 2025-02-12 13:40 | XMS_ITS | Encounter Summary ---
Author Organization [facility] Address [address] [place] [address] Care Team Providers Care Candle Molder Machine Name Role Phone Jamal Sharif MD Primary Care Provider [phone] Jamal Sharif MD Unavailable [phone] Reason for Referral * Consultation (Routine) - AuthorizedSpecialtyDiagnoses / ProceduresReferred By ContactReferred To ContactCardiology Diagnoses Heart palpitations Procedures [place] OFFICE/OUTPATIENT [facility] 60 MINUTES Sarah Oviedo NP [address] [place] [address] Phone: tel: fax: Sara Butcher MD [address] [place] [address], [address] [address] Phone: tel: fax: Referral IDStatusReasonStart DateExpiration DateVisits RequestedVisits [id number] Specialty Services Required / * Imaging (Routine) - AuthorizedSpecialtyDiagnoses / ProceduresReferred By ContactReferred To ContactRadiology Diagnoses Heart palpitations Procedures Transthoracic Echo (TTE) Complete Sarah Oviedo NP [address] [place] [address] Phone: tel: fax: [facility] Centralized Scheduling [address] [place] [address] [place] [address] Phone: tel: fax: Referral IDSMihir DateExpiration DateVisits RequestedVisits [id number] Perform Procedure / Reason for Visit * ReasonCommentsDizzinessPt here today for dizziness, light headed, heart rate any time she stands up from a squat Encounter Details DateTypeDepartmentCare Team (Latest Contact Info)Vgxhvuiwqlp00/28/2025 2:40 PM EDTOffice Visit [facility] [address] [place] [address] Sarah Oviedo NP [address] [place] [address] PND (post-nasal drip) (Primary Dx); Congestion of nasal sinus; Sinus pressure; Heart palpitations Social History Tobacco UseTypesPacks/DayYears UsedDateSmoking Tobacco: FormerCigarettes Smokeless Tobacco: NeverAlcohol UseStandard Drinks/WeekCommentsYes2 (1 standard drink = 0.6 oz pure alcohol)Caffeine intake: 1 cups per day of coffee, [id number] Health LiteracyAnswerDate RecordedHow often do you need to have someone help you when you read instructions, pamphlets, or other written material from your doctor or pharmacy?Never11/07/2024Humiliation, Afraid, Rape, and Kick questionnaireAnswerDate RecordedWithin the last year, have you been afraid of your partner or ex-partner?No11/07/2024Within the last year, have you been humiliated or emotionally abused in other ways by your partner or ex-partner?No 11/07/2024Within the last year, have you been kicked, hit, slapped, or otherwise physically hurt by your partner or ex-partner?No11/07/2024Within the last year, have you been raped or forced to have any kind of sexual activity by your part ner or ex-partner?No11/07/2024Social Connection and Isolation PanelAnswerDate RecordedIn a typical week, how many times do you talk on the phone with family, friends, or neighbors?Three times a week11/07/2024How often do you get together with friends or relatives?Once a week11/07/2024How often do you attend yarsani or mormon services?Never11/07/2024Do you belong to any clubs or organizations such as yarsani groups, unions, fraternal or athletic groups, or school groups?No 11/07/2024How often do you attend meetings of the clubs or organizations you belong to?Never11/07/2024re you , , , , never , or living with a partner?Hscrsvk7111/07/2024UDIT-CAnswerDate RecordedQ1: How often do you have a drink containing alcohol?Monthly or less11/07/2024Q2: How many drinks containing alcohol do you have on a typical day when you are drinking?1 or Q3: How often do you have six or more drinks on one occasion?Never11/07/2024Overall Financial Resource Strain (CARDIA)AnswerDate RecordedHow hard is it for you to pay for the very basics like food, housing, medical care, and heating?Not hard at all11/07/2024PHQ-2AnswerDate Recorded Patient Health Questionnaire-2 Kjkff881Finlakeview hospital [place] of Occupational Health - Occupational Stress QuestionnaireAnswerDate RecordedDo you feel stress - tense, restless, nervous, or anxious, or unable to sleep at night because your mind is troubled all the time - these days?Only a tmzmjd7611/07/2024Exercise Vital SignAnswerDate RecordedOn average, how many days per week do you engage in moderate to strenuous exercise (like a brisk walk)?5 days11/07/2024On average, how many minutes do you engage in exercise at this level?40 min11/07/2024Hunger Vital SignAnswerDate RecordedWithin the past 12 months, you worried that your food would run out before you got the money to buymore.Never true11/07/2024 Within the past 12 months, the food you bought just didn't last and you didn't have money to get more.Never true11/07/2024PRAPARE - TransportationAnswerDate RecordedIn the past 12 months, has lack of transportation kept you from medical appointments or from getting medications?No11/07/2024In the past 12 months, has lack of transportation kept you from meetings, work, or from getting things needed for daily living?No11/07/2024Housing Stability Vital SignAnswerDate RecordedIn the last 12 months, was there a time when you were not able to pay the mortgage or rent on time?No05/25/2023In the last 12 months, how many places have you lived?In the last 12 months, was there a time when you did not have a steady place to sleep or slept in ashelter (including now)?No 05/25/2023Housing Stability Vital SignAnswerDate RecordedIn the last 12 months, was there a time when you were not able to pay the mortgage or rent on time?No 11/07/2024In the past 12 months, how many times have you moved where you were living?t any time in the past 12 months, were you homeless or living in a correction (including now)?No11/07/2024CommentsNoSex and Gender InformationValueDate RecordedSex Assigned at BirthNot on fileLegal SexFemale 06/30/2022 7:22 PM EDTGender IdentityNot on fileSexual OrientationNot on file documented as of this encounter Last Filed Vital Signs Vital SignReadingTime TakenCommentsBlood Vbospdhn899/7810 2:46 PM EDT Mwwtk973302/12/2025 2:46 PM AUZDdwyewsabun60.9 ??C (98.4 ??F)02/12/2025 2:46 PM EDTRespiratory Rate--Oxygen Jsfmcywruj81%02/12/2025 2:46 PM EDTInhaled Oxygen Concentration--Vcyxqu35.5 kg (142 lb 3.2 oz)02/12/2025 2:46 PM JUFKlvykw844.5 cm (5' 2 )02/12/2025 2:46 PM EDTBody Mass Index26.011 2:46 PM EDT documented in this encounter Functional Status * Over the past 2 weeks, how often have you been bothered by any of the following problems?QuestionAnswerDate of AssessmentAuthorLittle interest or pleasure in doing thingsNot at all02/12/2025 2:45 PM EDTMatty Trinheeling down, depressed, or hopelessNot at all02/12/2025 2:45 PM Everardo Rangel Patient Health Questionnaire-2 Jtawq930 2:45 PM Everardo Rangel documented as of this encounter Progress Notes * Sarah Oviedo, STRAIGHT LINE PRESS SETTER - 02/12/2025 2:40 PM EDT Marisela Pacheco is a 39 y.o. female presents with chief complaint of Dizziness (Pt here today for dizziness, light headed, heart rate any time she stands up from a squat ) HPI: History of Present Illness The patient is a 39-year-old female who presents for evaluation of dizziness, shortness of breath, and palpitations. She received her influenza vaccine as usual but experienced an unusual reaction the following day, which has persisted for 3 weeks. She reports experiencing dizziness, vertigo, and a sensation of impending vomiting or fainting upon changing positions. She also notes a significant increase in her pulse rate from 78 to 127 during physical activities such as squatting and standing up, despite being physically active and working out regularly. She experiences shortness of breath even at rest and feels unwell, preventing her from attending the gym. She continues to have a runny nose and feels fatigued. She reports no fevers but does experience chills. She has congestion, postnasal drip, and a runny nose. She reports mild sinus pain or pressure in the frontal region. She reports no sore throat, cough, wheezing, gastrointestinal issues, diarrhea, or chest pain. She has lost approximately 40 pounds through diet and exercise, focusing on protein intake and avoiding sugar and snacks. She has only been able to work out three times in the past two weeks due to her symptoms. She has transitioned from energy drinks to tea and always consumes caffeine. She has been taking multivitamins, lemon, vitamin C, and zinc. She reports palpitations described as a fluttering sensation when changing positions but does not experience any pain. 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 Hobbies: Gym, renovating the house Diet: Prioritizes protein, avoids sugar and snacks, eats three meals a day Coffee/Tea/Caffeine-containing Drinks: Drinks tea, consumes caffeine MEDICATIONS: Current Outpatient Medications Medication Instructions azithromycin (Zithromax) 250 MG tablet 2 tabs PO day 1, 1 tab PO day 2-5 LaMICtal 200 mg, Daily Lo Loestrin Fe 1 MG-10 MCG / 10 MCG tablet 1 tablet, Oral, Daily meloxicam (MOBIC) 15 mg, Oral, Daily temazepam (RESTORIL) 15 mg, Nightly tiZANidine (ZANAFLEX) 4 mg, Oral, Nightly vilazodone (Viibryd) 10 mg tablet Vraylar 1.5 MG capsule 1 capsule, Every 24 hours ALLERGIES: Allergies[1] Review of Systems Constitutional: Positive for chills and fatigue. Negative for fever. HENT: Positive for congestion, postnasal drip, rhinorrhea, sinus pressure and sinus pain. Negative for ear pain and sore throat. Respiratory: Positive for shortness of breath. Negative for cough and wheezing. Cardiovascular: Positive for palpitations. Negative for chest pain. Gastrointestinal: Negative. Medical, Surgical, Family, and Social History reviewed. OBJECTIVE: Visit Vitals BP 126/78 (BP Location: Left arm, Patient Position: Sitting, BP Cuff Size: Adult) Pulse 88 Temp 98.4 ??F (Temporal) Ht 5' 2 Wt 142 lb 3.2 oz SpO2 98% BMI 26.01 kg/m?? OB Status Having periods Smoking Status Former BSA 1.68 m?? BP Readings from Last 3 Encounters: 02/12/25 126/78 09/24/24 126/72 01/04/24 102/78 Wt Readings from Last 3 Encounters: 02/12/25 142 lb 3.2 oz 09/24/24 175 lb 9.6 oz 01/04/24 171 lb 9.6 oz Physical Exam Physical Exam Respiratory: Clear to auscultation, no wheezing, rales or rhonchi Cardiovascular: Regular rate and rhythm, no murmurs, rubs, or gallops General: alert & oriented, NAD Head: NC/AT Oral Cavity: MMM Skin: warm, dry Musculoskeletal: normal gait Extremities: no clubbing, cyanosis or edema Neurological: nonfocal Psych: mood/affect full range Results ASSESSMENT AND PLAN: Assessment & Plan 1. Dizziness: - Symptoms suggest a transition from a viral to a bacterial infection. - Congestion, postnasal drip, runny nose, and sinus pain are present. - A Z-Jonathan (azithromycin) will be prescribed to manage the bacterial infection. - Advised to avoid dairy products and caffeine temporarily. Herbal tea with honey and elderberry syrup or gummies are recommended. Continue zinc and vitamin C supplements. A transthoracic echocardiogram will be ordered, and a referral to cardiology will be made. If no communication within 2 days, [facility]. Encouraged to engage in walking exercises for now. 2. Palpitations: - Palpitations may be attributed to ectopic beats, potentially induced by viruses. - Slight abnormality noted initially during heart examination, but normal rate and rhythm observed after squatting. - Advised to abstain from caffeine for a short period to observe any changes in palpitations. If chest pain occurs, seek immediate medical attention at the ER. If symptoms persist after 2 days of caffeine abstinence and antibiotic treatment, Follow-up: The patient will follow up in 1.5 weeks. Assessment/Plan Diagnoses and all orders for this visit: PND (post-nasal drip) Congestion of nasal sinus - azithromycin (Zithromax) 250 MG tablet; 2 tabs PO day 1, 1 tab PO day 2-5 Sinus pressure - azithromycin (Zithromax) 250 MG tablet; 2 tabs PO day 1, 1 tab PO day 2-5 Heart palpitations - Transthoracic Echo (TTE) Complete; Future - Ambulatory referral to Cardiology; Future Other orders - Follow Up In Family Medicine; Future Health Maintenance Due Topic Date Due Varicella Vaccines (2 of 2 - 13+ 2-dose series) 09/23/2006 HPV Vaccines (2 - 3-dose series) 06/28/2012 DTaP/Tdap/Td Vaccines (9 - Td or Tdap) 11/05/2020 Influenza Vaccine (1) 12/17/2024 COVID-19 Vaccine ( - 2024- season) 2024 [1] Allergies Allergen Reactions Anti-Oxidant Other Reaction(s): Unknown cause B Complex-B12 Unknown Balanced B-100 GI intolerance Dicyclomine Unknown Ferrous Sulfate Unknown Hydrocodone-Acetaminophen Nausea Only and Unknown Other Reaction(s): Nausea Alone ineffective Iron GI intolerance Lurasidone Unknown Penicillin G Hives Vitamin A GI intolerance Vitamin D (Calciferol) GI intolerance Vitamin E GI intolerance documented in this encounter Plan of Treatment DateTypeDepartmentCare Team (Latest Contact Info)Qyexmctlvvl76/19/2025 3:20 PM ESTOffice Visit [facility] [address] [place] [address] Sarah Oviedo NP [address] [place] [address] NameTypePriorityAssociated DiagnosesOrder ScheduleTransthoracic Echo (TTE) CompleteEchocardiographyRoutine Heart palpitations Expected: 02/12/2025 (Approximate), Expires: 02/12/2027NameTypePriority Associated DiagnosesOrder ScheduleAmbulatory referral to CardiologyOutpatient ReferralRoutine Heart palpitations Expected: 02/12/2025 (Approximate), Expires: 08/13/2025documented as of this encounter Visit Diagnoses Diagnosis PND (post-nasal drip)- Primary Postnasal drip Congestion of nasal sinus Other diseases of nasal cavity and sinuses Sinus pressure Other diseases of nasal cavity and sinuses Heart palpitations Palpitations documented in this encounter Care Teams Team MemberRelationshipSpecialtyStart DateEnd Date Jamal Sharif MD [address] [place] [address] PCP - GeneralFamily Medicine09/27/22 Jamal Sharif MD [address] [place] [address] PCP - Medical [employer]09/17/2411documented as of this encounter
--- OUTSIDE RECORDS SUMMARY | 2025-02-20 15:40 | XMS_ITS | Encounter Summary ---
Author Organization [facility] Address [address] [place] [address] Care Team Providers Care Credit Union Examiner Name Role Phone Jamal Sharif MD Primary Care Provider [phone] Jamal Sharif MD Unavailable [phone] Reason for Visit * ReasonCommentsER Follow-upPt here today for ER follow, admitted 02/14/2025 discharged to home. Dx: Acute hypokalemia, chest pain, taschycardia Encounter Details DateTypeDepartmentCare Team (Latest Contact Info)Dmhgiumzfvl25/05/2025 3:40 PM ESTOffice Visit [facility] [address] [place] [phone] Sarah Oviedo, RISK OFFICER [address] [place] [address] Heart palpitations (Primary Dx); Low blood potassium; Weakness; Anxiety; Chest pain, unspecified type; BMI 26.0-26.9,adult; Hypotension, unspecified hypotension type Social History Tobacco UseTypesPacks/DayYears UsedDateSmoking Tobacco: FormerCigarettes Smokeless Tobacco: NeverAlcohol UseStandard Drinks/WeekCommentsYes2 (1 standard drink = 0.6 oz pure alcohol)Caffeine intake: 1 cups per day of coffee, [id number] Health LiteracyAnswerDate RecordedHow often do you need [...] relatives?Once a week11/07/2024How often do you attend scientologist or uatsdin services?Never11/07/2024Do you belong to any clubs or organizations such as scientologist groups, unions, fraternal or athletic groups, or school groups?No 11/07/2024How often do you attend meetings of the clubs or organizations you belong to?Never11/07/2024re you , , , , never , or living with a partner?Poekeen5411/07/2024UDIT-CAnswerDate RecordedQ1: How often do you have a [...] hard at all11/07/2024PHQ-2AnswerDate Recorded Patient Health Questionnaire-2 [id number] - Occupational Stress QuestionnaireAnswerDate RecordedDo you feel stress - tense, restless, nervous, or anxious, or unable to sleep at night because your mind is troubled all the time - these days?Only a yxaysy7711/07/2024Exercise Vital SignAnswerDate RecordedOn average, how many days [...] steady place to sleep or slept in [facility] (including now)?No 05/25/2023Housing Stability Vital SignAnswerDate RecordedIn the last 12 months, was there a time when you were not able to pay the mortgage or rent on time?No 11/07/2024In the past 12 months, how many times have you moved where you were living?t any time in the past 12 months, were you homeless or living in a fpc (including now)?No11/07/2024CommentsNoSex and Gender InformationValueDate RecordedSex Assigned at BirthNot on fileLegal SexFemale 06/30/2022 7:22 PM EDTGender IdentityNot on fileSexual OrientationNot on file documented as of this encounter Last Filed Vital Signs Vital SignReadingTime TakenCommentsBlood Bbiuweqn54/6011/08/2024 3:46 PM EST Vhzdt525002/20/2025 3:46 PM XLDGxoqsvrowhn54.6 ??C (97.8 ??F)02/20/2025 3:46 PM ESTRespiratory Rate--Oxygen Inbpkquzgy45%02/20/2025 3:46 PM ESTInhaled Oxygen Concentration--Idqdds34.5 kg (142 lb 3.2 oz)02/20/2025 3:46 PM XYYMugrtz719.5 cm (5' 2 )02/20/2025 3:46 PM ESTBody Mass Index26.01104/22/2024 3:46 PM EST documented in this encounter Progress Notes * Sarha Oviedo NP - 02/20/2025 3:40 PM EST Images from the original note were not included. Marisela Pacheco is a 39 y.o. female presents with chief complaint of ER Follow-up (Pt here today for ERfollow, admitted 02/14/2025 discharged to home. Dx: Acute hypokalemia, chest pain, taschycardia) HPI: History of Present Illness The patient is a 39-year-old female who presents today for follow-up. She continues to experience chest pain, although her heart rate has shown improvement except duringthe morning hours. She experiences episodes of tachycardia in the morning, with her heart rate reaching the 140s, which subsequently decreases to the 120s upon arrival at work and continues to decline throughout the day. She has an upcoming echocardiogram scheduled for Tuesday and a cardiology appointment next . Her Holter monitor has not yet been approved. She was previously prescribed potassium 40 mg daily for a few days. She has been consuming Liquid IV, one packet per day, and reports feeling stable overall. She reports low blood pressure readings, which she attributes to her high water intake and lack of caffeine consumption. She has lost 40 pounds since August 2024, despite maintaining her food intake. She expresses concern about her inability to exercise due to weakness, which she believes may be contributing to her reduced appetite. She has been on control for the past 4 years, which has helped manage her mental health issues related to her menstrual cycle. She recently saw her psychiatric nurse practitioner and switched from Vraylar to Caplyta, taking her first dose last night. She reports feeling slightly dizzy from the new medication. Diet: She cooks every day and tries to maintain her food intake. Coffee/Tea/Caffeine-containing Drinks: She drinks herbal teas and avoids caffeine. MEDICATIONS: Current Outpatient Medications Medication Instructions Caplyta 21 MG capsule LaMICtal 200 mg, Daily Lo Loestrin Fe 1 MG-10 MCG / 10 MCG tablet 1 tablet, Oral, Daily meloxicam (MOBIC) 15 mg, Oral, Daily temazepam (RESTORIL) 15 mg, Nightly tiZANidine (ZANAFLEX) 4 mg, Oral, Nightly vilazodone (Viibryd) 10 mg tablet Vraylar 1.5 MG capsule 1 capsule, Every 24 hours ALLERGIES: Allergies[1] Review of Systems Medical, Surgical, Family, and Social History reviewed. General: Denies fever, chills, fatigue, AMBROSIO or weight loss/gain CV: Denies CP, palpitations or swelling in legs Resp: denies cough, SOB or wheezing GI: Denies abd pain/n/v/c/d Skin: Denies rash Neuro: Denies LH or dizziness OBJECTIVE: Visit Vitals BP 92/60 (BP Location: Right leg, Patient Position: Sitting, BP Cuff Size: Adult) Pulse 81 Temp 97.8 ??F (Temporal) Ht 5' 2 Wt 142 lb 3.2 oz SpO2 99% BMI 26.01 kg/m?? OB Status Having periods Smoking Status Former BSA 1.68 m?? BP Readings from Last 3 Encounters: 02/20/25 92/60 02/12/25 126/78 09/24/24 126/72 Wt Readings from Last 3 Encounters: 02/20/25 142 lb 3.2 oz 02/12/25 142 lb 3.2 oz 09/24/24 175 lb 9.6 oz Physical Exam Physical Exam Respiratory: Clear to auscultation, no wheezing, rales or rhonchi Cardiovascular: Regular rate and rhythm, no murmurs, rubs, or gallops General: alert & oriented, NAD Head: NC/AT Oral Cavity: MMM Skin: warm, dry Musculoskeletal: normal gait Extremities: no clubbing, cyanosis or edema Neurological: nonfocal Psych: mood/affect full range Results Labs - Potassium: Low - Thyroid: Stable ASSESSMENT AND PLAN: Assessment & Plan 1. Hypokalemia: - Potassium levels are low, which could be contributing to palpitations. - CMP will be conducted at [facility] to assess current potassium levels. - Increase salt intake and ensure adequate hydration. - Further investigation into the cause will be necessary if potassium levels remain low. 2. Chest pain: - Continues to experience chest pain, particularly in the mornings when heart rate spikes to the 140s before settling down to the 120s. - Scheduled for an echocardiogram on 02/25/2025 and a cardiology appointment on 02/28/2025. - Advised to seek immediate medical attention if experiencing severe chest pain or shortness of breath. 3. Low blood pressure: - Blood pressure readings are low. - Advised to monitor blood pressure over the next few days and record the readings. - Should seek emergency care if blood pressure drops significantly. 4. Mental health management: - Recently switched from Vraylar to Caplyta, with today being the first day on the new medication. - Reports feeling a little dizzy from the Caplyta. - Advised to continue monitoring symptoms and report any significant changes. Follow-up: The patient will follow up in 2 weeks. Assessment/Plan Diagnoses and all orders for this visit: Heart palpitations Low blood potassium - Comprehensive metabolic panel Weakness Anxiety Chest pain, unspecified type BMI 26.0-26.9,adult Hypotension, unspecified hypotension type Health Maintenance Due Topic Date Due Influenza Vaccine (1) 12/17/2024 COVID-19 Vaccine ( season) 2024 [1] Allergies Allergen Reactions Anti-Oxidant [...] Plan of Treatment DateTypeDepartmentCare Team (Latest Contact Info)Pplkibixzwz09/19/2025 3:20 PM ESTOffice Visit [facility] [address] [place] [phone] Sarah Oviedo NP [address] [place] [address] documented as of this encounter Procedures Procedure NamePriorityDate/TimeAssociated DiagnosisCommentsCOMPREHENSIVE METABOLIC GTMRWRiekjsf12/05/2025 4:20 PM EST Low blood potassium documented in this encounter Results * (ABNORMAL) Comprehensive metabolic panel (02/20/2025 4:20 PM EST)Component ValueRef RangeTest MethodAnalysis TimePerformed AtPathologist SignatureGlucose 9170 - 99 mg/dLLABCORPBUN5(L)6 - 20 mg/dLLABCORPCreat0.620.57 - 1.00 mg/dL URODGGWAVZJ835>59 mL/min/1.73LABCORPBUN/Creat Ratio8(L)9 - 71FFBZOSBEngibh682 134 - 144 mmol/LLABCORPPotassium3.93.5 - 5.2 mmol/ESTDLLJIOklcdbxf69967 - 106 mmol/LLABCORPCarbon Zcvfamy6883 - 29 mmol/LLABCORPCalcium9.58.7 - 10.2 mg/dL LABCORPProtein Total6.26.0 - 8.5 g/dLLABCORPAlbumin4.23.9 - 4.9 g/dLLABCORP Globulin Total2.01.5 - 4.5 g/dLLABCORPBili Total0.30.0 - 1.2 mg/dLLABCORPAlk Sjmtzlqeujm422(H)41 - 116 IU/HADGLJGMILT57 - 40 IU/YRPOUPDFBWF65(H)0 - 32 IU/L LABCORPSpecimen (Source)Anatomical Location / LateralityCollection Method / VolumeCollection TimeReceived TimeBloodVenous blood specimen / Unknown 02/20/2025 4:20 PM EST02/20/2025 Narrative [facility] - 02/21/2025 8:35 AM EST Performed at: [address] ??[id number] Nurse Advisor: Beka Broussard PhD, Phone: ??[phone] Authorizing ProviderResult TypeResult StatusDadakotah Oviedo [facility] BLOOD ORDERABLESFinal ResultPerforming OrganizationAddressCity/State/ZIP CodePhone Number [facility] documented in this encounter Visit Diagnoses Diagnosis Heart palpitations- Primary Palpitations Low blood potassium Hypopotassemia Weakness Other malaise and fatigue Anxiety Anxiety state, unspecified Chest pain, unspecified type BMI 26.0-26.9,adult Hypotension, unspecified hypotension type documented in this encounter Care Teams Team MemberRelationshipSpecialtyStart DateEnd Date Jamal Sharif MD [address] [place] [address] [facility] - [facility] Jamal Sharif MD [address] [place] [address] PCP - Medical [place] [employer]09/17/2411documented as of this encounter
--- OUTSIDE RECORDS SUMMARY | 2025-02-25 12:26 | XMS_ITS ---
Author Organization [facility] Address [address] [place] [address] Care Team Providers Care Hogshead Filler Name Role Phone Jamal Sharif MD Primary Care Provider [phone] Jamal Sharif MD Unavailable Emergency Department Transitional Care Management (TCM) Status:Declined (Declined) Start date:02/14/2025 Enrollment date:02/18/2025 Enrollment reason:Identified using hospital discharge data End date:02/18/2025 Decline reason:Patient declined Overview Discharged from [facility] ER on 02/14. Please contact within 2 days of discharge for ERTOC and schedule a follow-up appointment if needed. Continued Care and Services Coordination
--- OUTSIDE RECORDS SUMMARY | 2025-02-25 12:26 | XMS_ITS | Encounter Summary ---
Author Organization [facility] Address [address] [place] [address] Phone Care Team Providers Care Clinical Sciences Professor Name Role Phone Sarah Oviedo [facility] Primary Care Provider Encounter Details DateTypeDepartmentCare Team (Latest Contact Info)Qnqspfzewal36/29/2025Telephone [facility] [address] [facility] [address] [place] [address] Generic Provider, No Assigned Pcp, NONE [facility] [place] [address] Social History Tobacco UseTypesPacks/DayYears UsedDateSmoking Tobacco: Never Assessed CommentsUnknownSex and Gender InformationValueDate RecordedSex Assigned at Not on fileLegal FjgYlvjoh92/07/2025 1:42 PM EDTGender IdentityNot on fileSexual OrientationNot on filedocumented as of this encounter Miscellaneous Notes * Telephone Encounter - Rabia Eaton - 02/13/2025 3:09 PM EDT Referral DARIA cruz pt lives in [facility] has 03/01 @ 9:40 open documented in this encounter Plan of Treatment DateTypeDepartmentCare Team (Latest Contact Info)Hikzdetpvms55/14/2025 9:30 AM ESTOffice Visit [address] [facility] [address] [place] [address] Sara Butcher MD [address] [facility] [address] [place] [address] documented as of this encounter Visit Diagnoses Not on filedocumented in this encounter Care Teams Team MemberRelationshipSpecialtyStart DateEnd Date Sarah Oviedo, ROUGH PLANER TENDER-EDGE BANDER HAND [address] [place] [address] PCP - GeneralFamily Myeqfydv11/29/25documented as of this encounter
--- OUTSIDE RECORDS SUMMARY | 2025-02-25 12:26 | XMS_ITS | Encounter Summary ---
Author Organization [facility] Address [address] [place] [address] Phone Care Team Providers Care Setter Cold Rolling Machine Name Role Phone Sarah Oviedo APRN-SPOOL FIXER Primary Care Provider Encounter Details DateTypeDepartmentCare Team (Latest Contact Info)Cgiqavxyyao05/29/2025Scanned Document [facility] [address] [place] [phone] Scanning, Generic Provider Social History Tobacco UseTypesPacks/DayYears UsedDateSmoking Tobacco: Never Assessed CommentsUnknownSex and Gender InformationValueDate RecordedSex Assigned at Not on fileLegal TnuCglxif36/07/2025 1:42 PM EDTGender IdentityNot on fileSexual OrientationNot on filedocumented as of this encounter Plan of Treatment DateTypeDepartmentCare Team (Latest Contact Info)Bwmwtzdjjra05/14/2025 9:30 AM ESTOffice Visit [facility] [address] [place] [address] Sara Butcher MD [address] [facility] [address] [place] [address] documented as of this encounter Visit Diagnoses Not on filedocumented in this encounter Care Teams Team MemberRelationshipSpecialtyStart DateEnd Date Sarah Oviedo, KAPIL-SPOOL FIXER [address] [place] [address] PCP - GeneralFamily Wdsdjwsp35/29/25documented as of this encounter
--- OUTSIDE RECORDS SUMMARY | 2025-02-25 12:26 | XMS_ITS | Clinical Summary ---
Author Organization [facility] Address [address] [place] [address] Phone Care Team Providers Care Burglar Alarm Mechanic Name Role Phone Sarah Oviedo COURTROOM DEPUTY OR CALENDAR CLERK-[facility] Primary Care Provider Allergies Active AllergyReactionsCriticalityNoted TiumNnodfsqkOxiaqeugaeyLqlscwx28/21/2025 Ferrous CprprhpIegrxfx44/21/2025Hydrocodone-UqfidfuplsbyxRjjvufn72/21/2025 ineffective GlfzjnvqasCebxxyb93/21/2025 Medications MedicationSigDispense QuantityRefillsLast FilledStart DateEnd DateStatus vilazodone [...] mg) by mouth once daily.Active Encounters DateTypeDepartmentCare WqorZgarcepdicp92/29/2025Telephone [facility] [address] [address] Generic Provider, No Assigned Pcp, 02/13/2025Scanned Document [facility] [address] [place] [address] Scanning, Generic Provider from Last 3 Months Social History Tobacco UseTypesPacks/DayYears UsedDateSmoking Tobacco: Never Assessed CommentsUnknownSex and Gender InformationValueDate RecordedSex Assigned at Not on fileLegal IwdVzbdeh58/07/2025 1:42 PM EDTGender IdentityNot on fileSexual OrientationNot on file Last Filed Vital Signs Vital SignReadingTime TakenCommentsBlood Pressure--Pulse--Temperature-- Respiratory Rate--Oxygen Saturation--Inhaled Oxygen Concentration--Saapqw84.3 kg (166 lb)11/05/2024 8:41 AM YEHOyhndc407.5 cm (5' 2 )11/05/2024 8:41 AM EDTBody Mass Index30.36011/05/2024 8:41 AM EDT Plan of Treatment DateTypeDepartmentCare Team (Latest Contact Info)Tnmmhzwzmno97/14/2025 9:30 AM ESTOffice Visit [place] [address] [place] [address] Sara Butcher MD [address] [facility] [address] [place] [address] Health MaintenanceDue DateLast DoneCommentsHIV Uuttwseou18/08/1988Lipid Panel 1987Hepatitis C Hsrrvmoxu12/08/2006Cervical Cancer Rnruaigiw22/08/2009 HPV/Xffvaa7011/23/2008Pap Smear11/23/2008HPV Vaccines (2 - 3-dose series) DTaP/Tdap/Td Vaccines (10 - Td or Tdap), 08/06/2010, 07/27/2010, Additional history existsInfluenza Vaccine (#1) /, 01/25/2018, 02/26/2016, Additional history existsYearly Adult Ynrlifug86/04/2023, 07/28/2023, 3COVID-19 Vaccine (1 - season)2024Zoster Vaccines (1 of 2)8008/26/2006, 08/26/2006HIB IneidvxxCjfjkxnsw30/13/1990IPV YcgmaxbsMqqfejyfa09/26/1998, 07/17/1992, 10/26/1989, Additional history existsHepatitis B VaccinesCompleted 05/18/2006, 12/15/2005, 09/18/2005, Additional history existsMMR Vaccines Pfbamzkmc03/11/2007, 08/26/2006, 06/22/2000, Additional history exists Meningococcal QmmkcdsRsdwpazaj34/11/2007Hepatitis A VaccinesAged OutNo longer eligible based on patient's age to complete this topicPneumococcal Vaccine: Pediatrics and At-Risk Adult PatientsAged OutNo longer eligible based on patient's age to complete this topicRotavirus VaccinesAged OutNo longer eligible based on patient's age to complete this topic Insurance Care Teams Team MemberRelationshipSpecialtyStart DateEnd Sarah Oviedo, COURTROOM DEPUTY OR CALENDAR CLERK-[employer] [address] [place] [address] PCP - GeneralFamily Wxjcfulo88/29/25
--- OUTSIDE RECORDS SUMMARY | 2025-02-25 12:26 | XMS_ITS | Clinical Summary ---
Author Organization [facility] Address [address] [place] [address] Care Team Providers Care Licensing Worker Name Role Phone Jamal Sharif MD Primary Care Provider [phone] Jamal Sharif MD Unavailable Allergies Active AllergyReactionsCriticalityNoted DateCommentsAnti-Jhxknzm2011/16/2022 Other Reaction(s): Unknown cause B Complex-I90Ugeqqgk61/04/2022Balanced B-100GI etbkjbkwava27/31/2023icyclomine Dzzqbqc4611/16/2022Ferrous NegiabkYayjzbc70/01/2023Hydrocodone-AcetaminophenNausea Only,Mnjzwdt1005/22/2021 Other Reaction(s): Nausea Alone ineffective IronGI vevcdhrrjzl74/31/9489AbjkajhdizWjvchwm61/05/2023enicillin GHives 09/15/2022Vitamin DEBBIE mkqwfcayhca00/31/2023Vitamin D (Calciferol)GI intolerance 09/15/2022Vitamin EGI ylxzzopszju91/31/2023 Medications MedicationSigDispense QuantityRefillsLast FilledStart DateEnd DateStatus LaMICtal 200 MG tablet Take 200 mg by mouth in the morning.Active temazepam (Restoril) 15 MG capsule Take 15 mg by mouth at bedtimeActive vilazodone (Viibryd) 10 mg tablet 5Active tiZANidine (Zanaflex) 4 MG tablet Indications:Chronic thoracic back pain, unspecified back pain lateralityTAKE 1 TABLET BY MOUTH AT BEDTIME 90 tablet 5Active Lo Loestrin Fe 1 MG-10 MCG / 10 MCG tablet Indications:Abnormal menses,Painful menstrual periods,PMS (premenstrual syndrome)TAKE 1 TABLET BY MOUTH EVERY DAY 84 tablet 5Active Caplyta 21 MG capsule 5Active Vraylar 1.5 MG capsule 1 capsule 1 (one) time each day at the same time.02/20/2025Discontinued meloxicam (Mobic) 15 MG tablet Indications:Cervical painTAKE 1 TABLET BY MOUTH EVERY DAY 30 tablet Discontinued azithromycin (Zithromax) 250 MG tablet Indications:Congestion of nasal sinus,Sinus pressure2 tabs PO day 1, 1 tab PO day 2-5 6 tablet Discontinued(Therapy completed) Active Problems ProblemNoted DateDiagnosed SsdtZgbmyak40/13/2023ody mass index (BMI) 32.0-32.9, adult02/28/2023ody mass index (BMI) 30.0-30.9, adult02/28/2023osttraumatic stress yonbvoom96/13/2023ttention deficit hyperactivity disorder (ADHD), predominantly inattentive type09/15/2022ipolar affective disorder in remission 3Chronic cjyaqqdnlj91/31/2023Chronic efgqenx72/31/2023Chronic pain 09/15/2022Excessive zpvxdw4709/15/2022astroesophageal reflux isxajnw3409/15/2022 Seasonal cjvogkvyu60/31/0436Bheuftagqkq42/31/2023Weight gain09/15/2022ipolar /19/2021lass 2 egrotvm4309/04/2020ttention deficit hyperactivity disorder, predominantly inattentive type07/31/2020Irritable bowel syndrome with wczwmkqu31/20/2015 Encounters DateTypeDepartmentCare NukcArthhehgukf23/07/2025Telephone [facility] [address] [place] [address] Sarah Oviedo NP 02/22/2025Orders Only [facility] [place] [address] [place] [address] Sarah Oviedo, NICOLE Heart palpitations (Primary Dx); Chest pain, unspecified type02/22/2025Results Follow-Up [facility] [address] [place] [phone] Sarah Oviedo NP TSH RFX ON ABNORMAL TO FREE T4, Comprehensive metabolic panel, CBC and ysckuuqshuwc30/06/2025Results Follow-Up [facility] [address] [place] [address] Sarah Oviedo NP Comprehensive metabolic panel02/20/2025 3:40 PM ESTOffice Visit [facility] [address] [place] [address] Sarah Oviedo, NICOLE Heart palpitations (Primary Dx); Low blood potassium; Weakness; Anxiety; Chest pain, unspecified type; BMI 26.0-26.9,adult; Hypotension, unspecified hypotension type02/20/2025amboo flowsheet [facility] [address] [place] [phone] Sarah Oviedo NP 02/20/20253330Kttrat70/31/2025Patient Outreach [facility] [address] [place] [phone] Noelle Shine LPN 02/15/2025Telephone [facility] [address] [place] [address] Leslee Quezada Request For Order(s)02/15/2025Results Follow-Up [facility] [address] [place] [address] Sarah Oviedo, NICOLE [facility] CBC W/ AUTO DIFF, [facility] CMP, [facility] EGFR, [facility] TSH WITH T4FR BFYWMW5402/14/2025 Clinisync Result Encounter [facility] External Department Unsolicited Sarah Oviedo NP 02/14/2025Telephone [facility] [address] [place] [phone] Jamal Sharif MD Medication Zpbvcark78/28/2025 2:40 PM EDTOffice Visit [facility] [address] [place] [address] Sarah Oviedo, NICOLE PND (post-nasal drip) (Primary Dx); Congestion of nasal sinus; Sinus pressure; Heart jyigvzeypakb45/28/2025[facility] [place] [address] [place] [address] Sarah Oviedo NP 02/12/20255630Ksjsfw87/20/2025 3:40 PM EDTTelemedicine [place] [address] [place] [address] Sarah Oviedo, NICOLE Skin yeast infection (Primary Dx); Rash; Bhhvjqk7112/05/2024[place] [address] [place] [address] Sarah Oviedo NP 12/05/2024Travelfrom Last 3 Months Immunizations ImmunizationAdministration DatesNext DueDTaP, 5 pertussis bxujliww23/01/1993, 10/26/1989,06/16/1988,05/01/1988,02/11/1988HPV, Dudghlhy36/13/2013Hep B, Adolescent or Wgjcbbuqy49/31/2007,12/15/2005,09/18/2005,08/17/2000,06/22/2000Hib (PRP-T)12/29/1989IPV1,07/17/1992,10/26/1989,04/21/1988,02/11/1988 Influenza, injectable, lgvjhlpemueb74/29/2019Influenza, injectable, quadrivalent, preservative free01/25/2018,02/26/2016,01/04/2014Influenza, seasonal, injectable, preservative free02/10/2015MMR08/26/2006,06/22/2000, 10/26/1989MMRV08/26/2006Meningococcal IXV7O6108/26/2006Tdap11/05/2010,07/27/2010, 08/26/20066768Thtfbmsfr57/11/2007 Family History Medical HistoryRelationNameCommentsDiabetesBrotherHeart diseaseFather HypertensionFatherHeart diseaseMaternal GrandfatherHypertensionMaternal GrandfatherVaricose VeinsMaternal GrandfatherRelationNameStatusCommentsBrother Crooiulsw0LxqgtcVhgiuRgygodke LkuyysoeeghEvpauwWkgsvMsgoaqFcdyzx5Umlb9 Social History Tobacco UseTypesPacks/DayYears UsedDateSmoking Tobacco: FormerCigarettes Smokeless Tobacco: Never Tobacco Cessation:Counseling Given: Not Answered Alcohol UseStandard Drinks/WeekCommentsYes2 (1 standard drink = 0.6 oz pure alcohol)Caffeine intake: 1 cups per day of coffee, rgeV9570 Health Literacy AnswerDate RecordedHow often do you [...] relatives?Once a week11/07/2024How often do you attend restorationist or temple services?Never11/07/2024Do you belong to any clubs or organizations such as restorationist groups, unions, fraternal or athletic groups, or school groups?No 11/07/2024How often do you attend meetings of the clubs or organizations you belong to?Never11/07/2024re you , , , , never , or living with a partner?Fhvnxkj9211/07/2024UDIT-CAnswerDate RecordedQ1: How often do you have a [...] hard at all11/07/2024PHQ-2AnswerDate Recorded Patient Health Questionnaire-2 Ipoff330[facility] [employer] of Occupational [employer] - Occupational Stress QuestionnaireAnswerDate RecordedDo you feel stress - tense, restless, nervous, or anxious, or unable to sleep at night because your mind is troubled all the time - these days?Only a vjdhle5811/07/2024Exercise Vital SignAnswerDate RecordedOn average, how many days [...] were you homeless or living in a nursing home (including now)?No11/07/2024CommentsNoSex and Gender InformationValueDate RecordedSex Assigned at BirthNot on fileLegal SexFemale 06/30/2022 7:22 PM EDTGender IdentityNot on fileSexual OrientationNot on file Last Filed Vital Signs Vital SignReadingTime TakenCommentsBlood Epuekbok22/6002/20/2025 3:46 PM EST Oipcv405102/20/2025 3:46 PM XPIZkfckronifj47.6 ??C (97.8 ??F)02/20/2025 3:46 PM ESTRespiratory Rate--Oxygen Zwtwwsbsif00%02/20/2025 3:46 PM ESTInhaled Oxygen Concentration--Zcvqcu39.5 kg (142 lb 3.2 oz)02/20/2025 3:46 PM NBYRiqles635.5 cm (5' 2 )02/20/2025 3:46 PM ESTBody Mass Index26.01104/22/2024 3:46 PM EST Plan of Treatment DateTypeDepartmentCare Team (Latest Contact Info)Zeadpjhounz08/19/2025 3:20 PM ESTOffice Visit [facility] [address] [place] [phone] Sarah Oviedo NP [address] [place] [address] Health MaintenanceDue DateLast DoneCommentsCOVID-19 Vaccine ( season) , 04/28/2020, 04/04/2020Influenza Vaccine (#1)2024 02/13/2019, 01/25/2018, 02/26/2016, Additional history existsPap Smear01/03/2027 4Cervical Cancer Oohgxlppb10/18/2029HPV/Rcfpaa50, 06/22/2019Pneumococcal Vaccine: Pediatrics (0 to 5 Years) and At-Risk Patients (6 to 64 Years)Aged OutNo longer eligible based on patient's age to complete this topic Procedures Procedure NamePriorityDate/TimeAssociated DiagnosisCommentsPROTHROMBIN TIME-INR Fwboftl7402/22/2025 3:55 PM EST Abnormal laboratory test OPSEHXCOBMriaosv33/07/2025 3:55 PM EST Abnormal laboratory test PTH, INTACT WITHOUT PODJOHBEbnetny89/07/2025 3:55 PM EST Abnormal laboratory test VITAMIN D 25 HYDROXY PZKRPSgydokl08/07/2025 3:55 PM EST Abnormal laboratory test IUMUvymiep28/07/2025 3:55 PM EST Abnormal laboratory test CBC (INCLUDES DIFF/PLT)Dilmimd3402/21/2025 3:44 PM EST Heart palpitations COMPREHENSIVE METABOLIC GDWABZhilebv68/06/2025 3:44 PM EST Heart palpitations TSH RFX ON ABNORMAL TO FREE E6Yrvoglt85/06/2025 3:44 PM EST Heart palpitations COMPREHENSIVE METABOLIC ZMHHDKjkjbev07/05/2025 4:20 PM EST Low blood potassium [facility] TSH WITH T4FR GETLVQNgfahcn15/30/2025 2:32 PM EDT [facility] MACEFwzdjbz29/30/2025 2:32 PM EDT [facility] GKMTeceljo44/30/2025 2:32 PM EDT [facility] CBC W/ AUTO RNCTTvgnuir05/30/2025 2:32 PM EDT THIN PREP TIS PAP AND HR HPV VNXTafibfp01/18/2024 4:53 PM EDT from Last 3 Months or Most Recently Relevant to Health Maintenance Results * Vitamin D 25 hydroxy Total (02/22/2025 3:55 PM EST)ComponentValueRef RangeTest MethodAnalysis TimePerformed AtPathologist SignatureVitamin D, 25-Iuhhgpm37.3 30.0 - 100.0 ng/mLLABCORPComment: Vitamin D deficiency has been defined by the [employer] of [employer] and an Endocrine Society practice guideline as a level of serum 25-OH vitamin D less than 20 ng/mL (1,2). The Endocrine Society went on to further define vitamin D insufficiency as a level between 21 and 29 ng/mL (2). 1. IOM ([place] of Medicine). 2010. Dietary reference ?? intakes for calcium and D. [place]: The ?? [employer]. 2. Sujata MF, Concetta NC, Jessica AMBROSIO, et al. ?? Evaluation, treatment, and prevention of vitamin D ?? deficiency: an Endocrine Society clinical practice ?? guideline. JCEM. 2010; 96(7):1911-30. Specimen (Source)Anatomical Location / LateralityCollection Method / Volume Collection TimeReceived TimeBloodVenous blood specimen / Fdjxruo2102/22/2025 3:55 PM EST02/22/2025 Narrative [facility] - 02/24/2025 11:06 AM EST Performed at: 01 - [facility] [address] ??[phone] Personal Lines Sales Executive: Beka Broussard PhD, Phone: ??[phone] Authorizing ProviderResult TypeResult StatusDadkaotah Oviedo [facility] BLOOD ORDERABLESFinal ResultPerforming OrganizationAddressCity/State/ZIP CodePhone Number [facility] * Protime-INR (02/22/2025 3:55 PM EST)ComponentValueRef RangeTest MethodAnalysis TimePerformed AtPathologist SignatureINR1.00.9 - 1.2LABCORPComment: Reference interval is for non-anticoagulated patients. Suggested INR therapeutic range for Vitamin K antagonist therapy: ?? Standard Dose (moderate intensity ?therapeutic range): ? 2.0 - 3.0 ?? Higher intensity therapeutic range ? 2.5 - 3.5 Prothrombin Time10.99.1 - 12.0 secLABCORPSpecimen (Source)Anatomical Location / LateralityCollection Method / VolumeCollection TimeReceived TimeBloodVenous blood specimen / Ouhyqhi9102/22/2025 3:55 PM EST02/22/2025 Narrative [facility] - 02/24/2025 11:06 AM EST Performed at: [address] [place] [address] ??[id number] Personal Lines Sales Executive: Beka Broussard PhD, Phone: ??[phone] Authorizing ProviderResult TypeResult StatusDadakotah Orozco [facility] BLOOD ORDERABLESFinal ResultPerforming OrganizationAddressCity/State/[facility] CodePhone Number [facility] * (ABNORMAL) PTH, intact (02/22/2025 3:55 PM EST)ComponentValueRef RangeTest MethodAnalysis TimePerformed AtPathologist SignaturePARATHYROID HORMONE INTACT 14(L)15 - 65 pg/mLLABCORPSpecimen (Source)Anatomical Location / Laterality Collection Method / VolumeCollection TimeReceived TimeBloodVenous blood specimen / Darbxof4002/22/2025 3:55 PM EST02/22/2025 Narrative [facility] - 02/24/2025 11:06 AM EST Performed at: [address] ??[id number] Personal Lines Sales Executive: Beka Broussard PhD, Phone: ??[phone] Authorizing ProviderResult TypeResult StatusDaniromana Orozco [facility] BLOOD ORDERABLESFinal ResultPerforming OrganizationAddressCity/State/ZIP CodePhone Number [facility] * Magnesium (02/22/2025 3:55 PM EST)ComponentValueRef RangeTest MethodAnalysis TimePerformed AtPathologist SignatureMagnesium2.11.6 - 2.3 mg/dLLABCORP Specimen (Source)Anatomical Location / LateralityCollection Method / Volume Collection TimeReceived TimeBloodVenous blood specimen / Tafeuzv2802/22/2025 3:55 PM EST02/22/2025 Narrative [facility] - 02/24/2025 11:06 AM EST Performed at: [address] [place] [address] ??[id number] Personal Lines Sales Executive: Beka Broussard PhD, Phone: ??[phone] Authorizing ProviderResult TypeResult StatusSarah Orozco [facility] BLOOD ORDERABLESFinal ResultPerforming OrganizationAddressCity/State/ZIP CodePhone Number [facility] * (ABNORMAL) Gamma GT (02/22/2025 3:55 PM EST)ComponentValueRef RangeTest Method Analysis TimePerformed AtPathologist TvtbplcwgYXO753(H)0 - 60 IU/[facility] Specimen (Source)Anatomical Location / LateralityCollection Method / Volume Collection TimeReceived TimeBloodVenous blood specimen / Pjpsqnp5202/22/2025 3:55 PM EST02/22/2025 Narrative [facility] - 02/24/2025 11:06 AM EST Performed at: [address] ??[id number] Personal Lines Sales Executive: Beka Broussard PhD, Phone: ??[phone] Authorizing ProviderResult TypeResult StatusSarah Oviedo [facility] BLOOD ORDERABLESFinal ResultPerforming OrganizationAddressCity/State/ZIP CodePhone Number [facility] * TSH RFX ON ABNORMAL TO FREE T4 (02/21/2025 3:44 PM EST)ComponentValueRef Range Test MethodAnalysis TimePerformed AtPathologist SignatureTSH W/REFLEX TO FT4 1.2100.450 - 4.500 uIU/mLLABCORPSpecimen (Source)Anatomical Location / LateralityCollection Method / VolumeCollection TimeReceived Time02/21/2025 3:44 PM EST02/21/2025 Narrative [facility] - 02/22/2025 8:35 AM EST Performed at: [address] [place] [address] ??[id number] Personal Lines Sales Executive: Beka Broussard PhD, Phone: ??[phone] Authorizing ProviderResult TypeResult StatusDadakotah Oviedo [facility] BLOOD ORDERABLESFinal ResultPerforming OrganizationAddressCity/State/ZIP CodePhone Number [facility] * (ABNORMAL) CBC and differential (02/21/2025 3:44 PM EST)ComponentValueRef RangeTest MethodAnalysis TimePerformed AtPathologist SignatureWBC6.93.4 - 10.8 x10E3/uLLABCORPRBC4.273.77 - 5.28 x10E6/qYSHHDGFIFlp42.811.1 - 15.9 g/dL YIBUHIHTzj09.734.0 - 46.6 %JAMXVPUDDY0363 - 97 rHGWNGZMVGDP29.026.6 - 33.0 pg VSEIUGHQCQG90.131.5 - 35.7 g/fNUMZFOVIMYH03.6(L)11.7 - 15.4 %[facility]ABCORPPlatelets 039805 - 450 x10E3/vVEJGECMMFtcxglnzfme58Ihj Estab. %CLZDLGHVnousa90Xnq Estab. %YDUTZIAFzgxnujwe4Vnb Estab. %CACJBMKGeg3Kgd Estab. %VOYNEHXIlvbi8Dve Estab. % LABCORPNeutrophils Abs3.91.4 - 7.0 x10E3/uLLABCORPLymphs Abs2.10.7 - 3.1 x10E3/uLLABCORPMonocytesAbs0.50.1 - 0.9 x10E3/uLLABCORPEos Abs0.30.0 - 0.4 x10E3/uLLABCORPBaso Abs0.10.0 - 0.2 x10E3/uLLABCORPImmature Ssbfnvqoxdho4Qbu Estab. %LABCORPImmature Grans Abs0.00.0 - 0.1 x10E3/uLLABCORPSpecimen (Source) Anatomical Location / LateralityCollection Method / VolumeCollection Time Received TimeBloodVenous blood specimen / Ujbxpmk2402/21/2025 3:44 PM EST 02/21/2025 Narrative [facility] - 02/22/2025 8:35 AM EST Performed at: 01 - [address], [place], [place] ??[phone] Personal Lines Sales Executive: Beka Broussard PhD, Phone: ??[phone] Authorizing ProviderResult TypeResult StatusDadakotah Oviedo [facility] BLOOD ORDERABLESFinal ResultPerforming OrganizationAddressCity/State/ZIP CodePhone Number [facility] * (ABNORMAL) Comprehensive metabolic panel (02/21/2025 3:44 PM EST) Only the most recent of2 resultswithin the time period is included. ComponentValueRef RangeTest MethodAnalysis TimePerformed AtPathologist Signature Nqjbhkz2711 - 99 mg/kVXTLMNILKUD53 - 20 mg/dLLABCORPCreat0.670.57 - 1.00 mg/dL GMXHYOUEGZW012>59 mL/min/1.73LABC[facility]PBUN/Creat Kxyzf734 - 86DADWJYGYndrsf694511 - 144 mmol/[facility]PPotassium4.13.5 - 5.2 mmol/NKDETZVNTflyrkws58615 - 106 mmol/L [facility]ABC[facility]PCarbon Gezaneu2629 - 29 mmol/[facility]ORPCalcium9.78.7 - 10.2 mg/dLLABCORP Protein Total6.36.0 - 8.5 g/dLLABCORPAlbumin4.33.9 - 4.9 g/dLLABCORPGlobulin Total2.01.5 - 4.5 g/dLLABCORPBili Total0.40.0 - 1.2 mg/dLLABCORPAlk Phosphatase 160(H)41 - 116 IU/GHTMRDYHHDP575 - 40 IU/FRDXGEAIREX89(H)0 - 32 IU/[facility] Specimen (Source)Anatomical Location / LateralityCollection Method / Volume Collection TimeReceived TimeBloodVenous blood specimen / Zqjsqex3602/21/2025 3:44 PM EST02/21/2025 Narrative [facility] - 02/22/2025 8:35 AM EST Performed at: 01 - [facility], [place], [place] ??[phone] Personal Lines Sales Executive: Beka Broussard PhD, Phone: ??[phone] Authorizing ProviderResult TypeResult StatusDadakotah Oviedo [facility] BLOOD ORDERABLESFinal ResultPerforming OrganizationAddressCity/State/ZIP CodePhone Number [facility] * [facility] TSH WITH T4FR REFLEX (02/14/2025 2:32 PM EDT)ComponentValueRef RangeTest MethodAnalysis TimePerformed AtPathologist SignatureIN[facility] TSH2.410.34 - 5.60 mcIU/mLFTNORTHERN INYO HOSPITALpecimen (Source)Anatomical Location / LateralityCollection Method / VolumeCollection TimeReceived JzubYfctm87/30/2025 2:32 PM EDT1 3:07 PM EDT Narrative [facility] - 02/14/2025 3:54 PM EDT Original Ordering Provider: HOLLAND OVIEDO Authorizing ProviderResult TypeResult StatusDadakotah Oviedo NPCLINISYNCFinal ResultPerforming OrganizationAddressCity/State/ZIP CodePhone Number [facility] * [facility] EGFR (02/14/2025 2:32 PM EDT)ComponentValueRef RangeTest MethodAnalysis TimePerformed AtPathologist [facility] EMKJ696>=59 mL/min/1.73 m2[facility] Specimen (Source)Anatomical Location / LateralityCollection Method / Volume Collection TimeReceived SxzyGizjd48/30/2025 2:32 PM EDT1 3:07 PM EDT Narrative [facility] - 02/14/2025 3:39 PM EDT Original Ordering Provider: HOLLAND OVIEDO Authorizing ProviderResult TypeResult StatusSarah Oviedo NPCLINISYNCFinal ResultPerforming OrganizationAddressCity/State/ZIP CodePhone Number [facility] * (ABNORMAL) [facility] CMP (02/14/2025 2:32 PM EDT)ComponentValueRef RangeTest Method Analysis TimePerformed AtPathologist [facility] GLUCOSE AXK8587 - 199 mg/dL [facility] BUN65 - 21 mg/dLPINE [facility] CREATININE0.60.5 - 1.3 mg/dLP[facility] CALCIUM LVL8.98.9 - 11.1 mg/dLP[facility] SODIUM LTP270398 - 145 mmol/LFTMCFTMC POTASSIUM 3.4(L)3.5 - 5.3 mmol/LFTMCFTMC IPOJVKZV788819 - 111 mmol/LFTMCFTMC SW02546 - 31 mmol/LFTMCFTMC ALK CGOF565(H)21 - 98 Int._Unit/LFTMCFTMC BILI TOTAL0.40.0 - 1.1 mg/dLPINE [facility] ALBUMIN LVL4.43.3 - 5.0 gm/dLPINE [facility] TOTAL PROTEIN6.96.0 - 7.8 gm/dLPINE [facility] KDB779 - 46 Int._Unit/LFTMCFTMC AST95 - 43 Int._Unit/LFTMC [facility] BUN/CREAT XVPAY5344 - 20 No UnitsPINE REST [facility] LUEQ747 - 16 mEq/LFTMTHE MEDICAL CENTER GLOBULIN2.51.4 - 4.0 gm/dLPINE [facility] A/G RATIO1.81.1 - 2.2FTMCSpecimen (Source) Anatomical Location / LateralityCollection Method / VolumeCollection Time Received FcqdKytnv27/30/2025 2:32 PM EDT1 3:07 PM EDT Narrative [facility] - 02/14/2025 3:39 PM EDT Original Ordering Provider: HOLLAND OVIEDO Authorizing ProviderResult TypeResult StatusDadakotah Oviedo NPCLINISYNCFinal ResultPerforming OrganizationAddressCity/State/ZIP CodePhone Number [facility] * [facility] CBC W/ AUTO DIFF (02/14/2025 2:32 PM EDT)ComponentValueRef RangeTest MethodAnalysis TimePerformed AtPathologist SignatureWBC7.34.0 - 11.0 E9/LFTMC RBC4.64.3 - 5.9 E12/OPKRCJAC75.912.0 - 16.0 gm/xLYSKJGBX47.634.0 - 46.0 %[facility] RDW12.110.9 - 14.2 %IILJYLE33.327.0 - 34.0 ucMDFIVEUN65.031.4 - 36.0 gm/dLFTMC MCV86.780.0 - 100.0 fLFTMCMPV7.96.4 - 10.8 xMEEOVRWRAMPJY028.0150.0 - 500.0 E9/LFTMCNEUTRO AUTO51.936.0 - 75.0 %FTMCLYMPH AUTO31.414.0 - 50.0 %FTMCMONO AUTO10.34.0 - 14.0 %FTMCEOS AUTO5.50.0 - 8.0 %FTMCBASOPHIL AUTO0.90.0 - 2.0 % FTMCNEUTRO ABSOLUTE3.82.0 - 7.5 E9/LFTMCLYMPH ABSOLUTE2.31.0 - 4.0 E9/LFTMC MONO ABSOLUTE0.80.2 - 1.0 E9/LFTMCEOS ABSOLUTE0.40.0 - 0.5 E9/LFTMCBASOPHIL ABSOLUTE0.10.0 - 0.2 E9/LFTMCSpecimen (Source)Anatomical Location / Laterality Collection Method / VolumeCollection TimeReceived VraxXdtri58/30/2025 2:32 PM EDT1 3:06 PM EDT Narrative [facility] - 02/14/2025 3:16 PM EDT Original Ordering Provider: HOLLAND OVIEDO Authorizing ProviderResult TypeResult StatusDaniromana vOiedo NPCLINISYNCFinal ResultPerforming OrganizationAddressCity/State/ZIP CodePhone Number [facility] * THIN PREP TIS PAP AND HR [...] been evaluated with computer assisted technology. CYTOTECHNOLOGISTQUESTComment: [facility], CT(ASCP) CT screening location: [place] [address]. REVIEW CYTOTECHNOLOGISTQUESTComment: [facility], CT(ASCP) CT screening location: [place] [address]. (ALWAYS MESSAGE)QUESTComment: EXPLANATORY NOTE: The Pap is [...] Performing Organization Information ?Site ID: AMD ?Name: [facility] ?Address: [address] [place] [address] [place] ?Director: Mannie Worrell M.D.,PhD ?Site ID: [id number] ?Name: [facility] ?Address: [address] [place] [id number] ?Director: Christiano Concepcion MD Authorizing ProviderResult TypeResult StatusDadakotah Oviedo [facility] CYTOLOGY ORDERABLESFinal ResultPerforming OrganizationAddressCity/State/ZIP CodePhone Number [facility] from Last 3 Months or Most Recently Relevant to Health Maintenance Insurance Care Teams Team MemberRelationshipSpecialtyStart DateEnd Date Jamal Sharif MD [address] [place] [address] [facility] - [facility]22 Jamal Sharif MD [address] [place] [address] PCP - Medical [facility]09/17/2411
--- OUTSIDE RECORDS SUMMARY | 2025-02-25 12:26 | XMS_ITS | Encounter Summary ---
Author Organization [facility] Address [address] [place] [address] Care Team Providers Care Traveling Crane Operator Name Role Phone Jamal Sharif MD Primary Care Provider [phone] Jamal Sharif MD Unavailable [phone] Reason for Visit * ReasonOnset DateCommentsMedication Xkjnzicq56/30/2025 Encounter Details DateTypeDepartmentCare Team (Latest Contact Info)Lrndfxnyhch93/30/2025Telephone [facility] [facility] [address] [place] [phone] Jamal Sharif MD [address] [place] [address] Medication Question Social History Tobacco UseTypesPacks/DayYears UsedDateSmoking Tobacco: FormerCigarettes Smokeless Tobacco: NeverAlcohol UseStandard Drinks/WeekCommentsYes2 (1 standard drink = 0.6 oz pure alcohol)Caffeine intake: 1 cups per day of coffee, [id number] Health LiteracyAnswerDate RecordedHow often do you need [...] relatives?Once a week11/07/2024How often do you attend alevism or uatsdin services?Never11/07/2024Do you belong to any clubs or organizations such as alevism groups, unions, fraTittat or athletic groups, or school groups?No 11/07/2024How often do you attend meetings of the clubs or organizations you belong to?Never11/07/2024re you , , , , never , or living with a partner?Vpodxox2111/07/2024UDIT-CAnswerDate RecordedQ1: How often do you have a [...] hard at all11/07/2024PHQ-2AnswerDate Recorded Patient Health Questionnaire-2 Zjzno090Finintermountain healthcare [place] of Occupational Health - Occupational Stress QuestionnaireAnswerDate RecordedDo you feel stress - tense, restless, nervous, or anxious, or unable to sleep at night because your mind is troubled all the time - these days?Only a jtdblm4611/07/2024Exercise Vital SignAnswerDate RecordedOn average, how many days [...] steady place to sleep or slept in [facility] (including now)?No 05/25/2023Housing Stability Vital SignAnswerDate RecordedIn the last 12 months, was there a time when you were not able to pay the mortgage or rent on time?No 11/07/2024In the past 12 months, how many times have you moved where you were living?t any time in the past 12 months, were you homeless or living in a group home (including now)?No11/07/2024CommentsNoSex and Gender InformationValueDate RecordedSex Assigned at BirthNot on fileLegal SexFemale 06/30/2022 7:22 PM EDTGender IdentityNot on fileSexual OrientationNot on file documented as of this encounter Miscellaneous Notes * Addendum Note - Mckenzie Oviedo NP - 02/14/2025 9:39 AM EDTAddended by: MCKENZIE OVIEDO on: 02/14/2025 09:39 AM Modules accepted: Orders * Telephone Encounter - Mckenzie Oviedo NP - 02/14/2025 9:36 AM EDT Yes I will put in labs and she can come here and get them done * Telephone Encounter - Aniya Ashley - 02/14/2025 9:23 AM EDT Pt said that she was just in the other day and last night went to the ER. She said she could not catch her breath and her heart was going crazy. She said they would not run more than a BMT. She is wondering if you think its a good idea for her to come in to run her theroid panel? She said she thinks that's what's causing it. Please advise. Thank you! documented in this encounter Plan of Treatment DateTypeDepartmentCare Team (Latest Contact Info)Obcclfqyjeh43/19/2025 3:20 PM ESTOffice Visit [facility] [address] [place] [address] Mckenzie Oviedo NP [address] [place] [address] NameTypePriorityAssociated DiagnosesOrder ScheduleECG 12 leadECGRoutine Heart palpitations Ordered: 02/14/2025documented as of this encounter Procedures Procedure NamePriorityDate/TimeAssociated DiagnosisCommentsTSH RFX ON ABNORMAL TO FREE Y3Jtgmhbz72/06/2025 3:44 PM EST Heart palpitations CBC (INCLUDES DIFF/PLT)Ydfqmrs9502/21/2025 3:44 PM EST Heart palpitations COMPREHENSIVE METABOLIC JRWJNJmiumzd39/06/2025 3:44 PM EST Heart palpitations documented in this encounter Results * (ABNORMAL) CBC and differential (02/21/2025 3:44 PM EST)ComponentValueRef RangeTest MethodAnalysis TimePerformed AtPathologist SignatureWBC6.93.4 - 10.8 x10E3/uLLABCORPRBC4.273.77 - 5.28 x10E6/bAZSHNDLNObo67.811.1 - 15.9 g/dL XJTNJZLPee11.734.0 - 46.6 %PHOZVRQJOB4567 - 97 iMSHPFXCIJMB16.026.6 - 33.0 pg KGVSVREVBGJ20.131.5 - 35.7 g/nUGBJDOCYGOJ93.6(L)11.7 - 15.4 %LABCORPPlatelets 968909 - 450 x10E3/dWLTQIHAEKalaoflauim00Jea Estab. %BHSFXMTYrwuyw82Jot Estab. %XAGYRDDAqfmyhtty9Gix Estab. %OIKSUTVNtx4Bdm Estab. %TPEQPTQHdwvx5Oyl Estab. % LABCORPNeutrophils Abs3.91.4 - 7.0 x10E3/uLLABCORPLymphs Abs2.10.7 - 3.1 x10E3/uLLABCORPMonocytesAbs0.50.1 - 0.9 x10E3/uLLABCORPEos Abs0.30.0 - 0.4 x10E3/uLLABCORPBaso Abs0.10.0 - 0.2 x10E3/uLLABCORPImmature Qwlpqzbwljpb9Rfd Estab. %LABCORPImmature Grans Abs0.00.0 - 0.1 x10E3/uLLABCORPSpecimen (Source) Anatomical Location / LateralityCollection Method / VolumeCollection Time Received TimeBloodVenous blood specimen / Busgjju8202/21/2025 3:44 PM EST 02/21/2025 Narrative [facility] - 02/22/2025 8:35 AM EST Performed at: - [address], [place], [place] ??[id number] Multifocal Lens Inspector: Beka Broussard PhD, Phone: ??[phone] Authorizing ProviderResult TypeResult StatusDadakotah Oviedo LAB BLOOD ORDERABLESFinal ResultPerforming OrganizationAddressCity/State/ZIP CodePhone Number [facility] * (ABNORMAL) Comprehensive metabolic panel (02/21/2025 3:44 PM EST)Component ValueRef RangeTest MethodAnalysis TimePerformed AtPathologist SignatureGlucose 8070 - 99 mg/sBITWUKELINI94 - 20 mg/dLLABCORPCreat0.670.57 - 1.00 mg/dLLABCORP MZDU702>59 mL/min/1.73LABCORPBUN/Creat Dfrvc074 - 25LXOUQXFRqtdpf214186 - 144 mmol/LLABCORPPotassium4.13.5 - 5.2 mmol/SPOGHZSAKwnuijar25130 - 106 mmol/L LABCORPCarbon Qhvziqu1177 - 29 mmol/LLABCORPCalcium9.78.7 - 10.2 mg/dLLABCORP Protein Total6.36.0 - 8.5 g/dLLABCORPAlbumin4.33.9 - 4.9 g/dLLABCORPGlobulin Total2.01.5 - 4.5 g/dLLABCORPBili Total0.40.0 - 1.2 mg/dLLABCORPAlk Iplwdgquqjx109(H)41 - 116 IU/ADFCCBEWSKM570 - 40 IU/SOVFPZZBGXF94(H)0 - 32 IU/LLABCORPSpecimen (Source)Anatomical Location / LateralityCollection Method / VolumeCollection TimeReceived TimeBloodVenous blood specimen / Unknown 02/21/2025 3:44 PM EST02/21/2025 Narrative [facility] - 02/22/2025 8:35 AM EST Performed at: 01 - [address] ??[id number] Multifocal Lens Inspector: Beka Broussard PhD, Phone: ??[phone] Authorizing ProviderResult TypeResult StatusDadakotah Oviedo [facility] BLOOD ORDERABLESFinal ResultPerforming OrganizationAddressCity/State/ZIP CodePhone Number [facility] * TSH RFX ON ABNORMAL TO FREE T4 (02/21/2025 3:44 PM EST)ComponentValueRef Range Test MethodAnalysis TimePerformed AtPathologist SignatureTSH W/REFLEX TO FT4 1.2100.450 - 4.500 uIU/mLLABCORPSpecimen (Source)Anatomical Location / LateralityCollection Method / VolumeCollection TimeReceived Time02/21/2025 3:44 PM EST02/21/2025 Narrative [facility] - 02/22/2025 8:35 AM EST Performed at: 01 - [facility] [address] ??[id number] Multifocal Lens Inspector: Beka Broussard PhD, Phone: ??[phone] Authorizing ProviderResult TypeResult StatusDaniromana Oviedo NPLAB BLOOD ORDERABLESFinal ResultPerforming OrganizationAddressCity/State/ZIP CodePhone Number [facility] documented in this encounter Visit Diagnoses Diagnosis Heart palpitations- Primary Palpitations documented in this encounter Care Teams Team MemberRelationshipSpecialtyStart DateEnd Date Jamal Sharif MD [address] [place] [address] PCP - GeneralFamily Medicine09/27/22 Jamal Sharif MD [address] [place] [address] PCP - Medical [place] [employer]09/17/2411documented as of this encounter
--- OUTSIDE RECORDS SUMMARY | 2025-02-25 12:26 | XMS_ITS | Encounter Summary ---
Author Organization [facility] Address [address] [place] [address] Care Team Providers Care Sales Development Executive Name Role Phone Jamal Sharif MD Primary Care Provider [phone] Jamal Sharif MD Unavailable Encounter Details DateTypeDepartmentCare Team (Latest Contact Info)Faggfqzpovb26/28/2025amboo flowsheet [facility] [address] [place] [address] Sarah Oviedo, TAX DIRECTOR [address] [place] [address] Social History Tobacco UseTypesPacks/DayYears UsedDateSmoking Tobacco: FormerCigarettes Smokeless Tobacco: NeverAlcohol UseStandard Drinks/WeekCommentsYes2 (1 standard drink = 0.6 oz pure alcohol)Caffeine intake: 1 cups per day of coffee, [id number] Health LiteracyAnswerDate RecordedHow often do you need [...] relatives?Once a week11/07/2024How often do you attend mu-ism or islam services?Never11/07/2024Do you belong to any clubs or organizations such as mu-ism groups, unions, fraHipui or athletic groups, or school groups?No 11/07/2024How often do you attend meetings of the clubs or organizations you belong to?Never11/07/2024re you , , , , never , or living with a partner?Xbyqgfl1211/07/2024UDIT-CAnswerDate RecordedQ1: How often do you have a [...] hard at all11/07/2024PHQ-2AnswerDate Recorded Patient Health Questionnaire-2 Civov828Finspanish fork hospital [place] of Occupational Health - Occupational Stress QuestionnaireAnswerDate RecordedDo you feel stress - tense, restless, nervous, or anxious, or unable to sleep at night because your mind is troubled all the time - these days?Only a qhuyny0011/07/2024Exercise Vital SignAnswerDate RecordedOn average, how many days [...] steady place to sleep or slept [place] ([place])?No 05/25/2023Housing Stability Vital SignAnswerDate RecordedIn the last 12 months, was there a time when you were not able to pay the mortgage or rent on time?No 11/07/2024In the past 12 months, how many times have you moved where you were living?t any time in the past 12 months, were you homeless or living in a [facility] (including now)?No11/07/2024CommentsNoSex and Gender InformationValueDate RecordedSex Assigned at BirthNot on fileLegal SexFemale 06/30/2022 7:22 PM EDTGender IdentityNot on fileSexual OrientationNot on file documented as of this encounter Plan of Treatment DateTypeDepartmentCare Team (Latest Contact Info)Whdebiaxqvz57/19/2025 3:20 PM ESTOffice Visit [facility] [address] [place] [phone] Sarah Oviedo NP [address] [place] [address] documented as of this encounter Visit Diagnoses Not on filedocumented in this encounter Care Teams Team MemberRelationshipSpecialtyStart DateEnd Date Jamal Sharif MD [address] [place] [address] [facility] - [facility]09/27/22 Jamal Sharif MD [address] [place] [address] PCP - Medical [facility]09/17/2411documented as of this encounter
--- OUTSIDE RECORDS SUMMARY | 2025-02-25 12:26 | XMS_ITS | Encounter Summary ---
Author Organization [facility] Address [address] [place] [address] Care Team Providers Care Blind Escort Name Role Phone Jamal Sharif MD Primary Care Provider [phone] Jamal Sharif MD Unavailable [phone] Encounter Details DateTypeDepartmentCare Team (Latest Contact Info)Rbfmewlrjzp85/28/2025Travel Social History Tobacco UseTypesPacks/DayYears UsedDateSmoking Tobacco: FormerCigarettes Smokeless Tobacco: NeverAlcohol UseStandard Drinks/WeekCommentsYes2 (1 standard drink = 0.6 oz pure alcohol)Caffeine intake: 1 cups per day of coffee, [id number] Health LiteracyAnswerDate RecordedHow often do you need [...] relatives?Once a week11/07/2024How often do you attend restorationism or holiness services?Never11/07/2024Do you belong to any clubs or organizations such as restorationism groups, unions, fraternal or athletic groups, or school groups?No 11/07/2024How often do you attend meetings of the clubs or organizations you belong to?Never11/07/2024re you , , , , never , or living with a partner?Hytoxqt5711/07/2024UDIT-CAnswerDate RecordedQ1: How often do you have a [...] hard at all11/07/2024PHQ-2AnswerDate Recorded Patient Health Questionnaire-2 Yjsru763Finut[facility] hospital [place] of Occupational Health - Occupational Stress QuestionnaireAnswerDate RecordedDo you feel stress - tense, restless, nervous, or anxious, or unable to sleep at night because your mind is troubled all the time - these days?Only a dbkkmw6711/07/2024Exercise Vital SignAnswerDate RecordedOn average, how many days [...] steady place to sleep or slept [place] ([place])?No 05/25/2023Housing Stability Vital SignAnswerDate RecordedIn the last 12 months, was there a time when you were not able to pay the mortgage or rent on time?No 11/07/2024In the past 12 months, how many times have you moved where you were living?t any time in the past 12 months, were you homeless or living in a longterm (including now)?No11/07/2024CommentsNoSex and Gender InformationValueDate RecordedSex Assigned [...] 2:45 PM Everardo Rangel Patient Health Questionnaire-2 Zfgar714 2:45 PM Everardo Rangel documented as of this encounter Plan of Treatment DateTypeDepartmentCare Team (Latest Contact Info)Muwybjfbajx19/19/2025 3:20 PM ESTOffice Visit [facility] [place] [address] [place] [address] Sarah Oviedo INSURANCE SALES ASSISTANT [address] [place] [address] documented as of this encounter Visit Diagnoses Not on filedocumented in this encounter Care Teams Team MemberRelationshipSpecialtyStart DateEnd Date Jamal Sharif MD [address] [place] [address] [facility] - [facility]22 Jamal Sharif MD [address] [place] [address] PCP - Medical [facility]09/17/2411documented as of this encounter
--- OUTSIDE RECORDS SUMMARY | 2025-02-25 12:27 | XMS_ITS | Encounter Summary ---
Author Organization [facility] Address [address] [place] [address] Care Team Providers Care Lens Molding Equipment Operator Name Role Phone Jamal Sharif MD Primary Care Provider [phone] Jamal Sharif MD Unavailable [phone] Encounter Details DateTypeDepartmentCare Team (Latest Contact Info)Ihbtxjrbmof20/07/2025Telephone [facility] [place] [facility] [address] [place] [address] Sarah Oviedo, WET MACHINE OPERATOR [address] [place] [address] Social History Tobacco UseTypesPacks/DayYears UsedDateSmoking Tobacco: FormerCigarettes Smokeless Tobacco: NeverAlcohol UseStandard Drinks/WeekCommentsYes2 (1 standard drink = 0.6 oz pure alcohol)Caffeine intake: 1 cups per day of coffee, [id number] Health LiteracyAnswerDate RecordedHow often do you need [...] relatives?Once a week11/07/2024How often do you attend latter-day or sabianist services?Never11/07/2024Do you belong to any clubs or organizations such as latter-day groups, unions, fraThree Rings or athletic groups, or school groups?No 11/07/2024How often do you attend meetings of the clubs or organizations you belong to?Never11/07/2024re you , , , , never , or living with a partner?Oopvamr1711/07/2024UDIT-CAnswerDate RecordedQ1: How often do you have a [...] hard at all11/07/2024PHQ-2AnswerDate Recorded Patient Health Questionnaire-2 Jmksl175Findelta community medical center [place] of Occupational Health - Occupational Stress QuestionnaireAnswerDate RecordedDo you feel stress - tense, restless, nervous, or anxious, or unable to sleep at night because your mind is troubled all the time - these days?Only a ncknsd9611/07/2024Exercise Vital SignAnswerDate RecordedOn average, how many days [...] steady place to sleep [facility] ([facility])?No 05/25/2023Housing Stability Vital SignAnswerDate RecordedIn the last 12 months, was there a time when you were not able to pay the mortgage or rent on time?No 11/07/2024In the past 12 months, how many times have you moved where you were living?t any time in the past 12 months, were you homeless or living in a snf (including now)?No11/07/2024CommentsNoSex and Gender InformationValueDate RecordedSex Assigned at BirthNot on fileLegal SexFemale 06/30/2022 7:22 PM EDTGender IdentityNot on fileSexual OrientationNot on file documented as of this encounter Plan of Treatment DateTypeDepartmentCare Team (Latest Contact Info)Qnzvxfjbavk92/19/2025 3:20 PM ESTOffice Visit [facility] [address] [place] [phone] Sarah Oviedo NP [address] [place] [address] documented as of this encounter Procedures Procedure NamePriorityDate/TimeAssociated DiagnosisCommentsVITAMIN D 25 HYDROXY PKEVDCsrgtsf94/07/2025 3:55 PM EST Abnormal laboratory test PROTHROMBIN TIME-YDRQrlmute48/07/2025 3:55 PM EST Abnormal laboratory test PTH, INTACT WITHOUT MUVVGUJWwummtr74/07/2025 3:55 PM EST Abnormal laboratory test QQZMOYVWVZpmriei29/07/2025 3:55 PM EST Abnormal laboratory test HWGIvxtffq67/07/2025 3:55 PM EST Abnormal laboratory test documented in this encounter Results * Protime-INR (02/22/2025 3:55 PM EST)ComponentValueRef RangeTest [...] / VolumeCollection TimeReceived TimeBloodVenous blood specimen / Zpmsbsp1202/22/2025 3:55 PM EST02/22/2025 Narrative [facility] - 02/24/2025 11:06 AM EST Performed at: 01 - [facility] [address] ??[id number] Senior Financial Reporting Accountant: Beka Broussard PhD, Phone: ??[phone] Authorizing ProviderResult TypeResult StatusDaniromana Oviedo [facility] BLOOD ORDERABLESFinal ResultPerforming OrganizationAddressCity/State/ZIP CodePhone Number [facility] * Magnesium (02/22/2025 3:55 PM EST)ComponentValueRef RangeTest MethodAnalysis TimePerformed AtPathologist SignatureMagnesium2.11.6 - 2.3 mg/dLLABC[facility]P Specimen (Source)Anatomical Location / LateralityCollection Method / Volume Collection TimeReceived TimeBloodVenous blood specimen / Fcqtemq4802/22/2025 3:55 PM EST02/22/2025 Narrative [facility] - 02/24/2025 11:06 AM EST Performed at: 01 - [facility] ??[id number] Senior Financial Reporting Accountant: Beka Broussard PhD, Phone: ??[phone] Authorizing ProviderResult TypeResult StatusDaniromana Orozco [facility] BLOOD ORDERABLESFinal ResultPerforming OrganizationAddressty/State/ZIP CodePhone Number [facility] * (ABNORMAL) PTH, intact (02/22/2025 3:55 PM EST)ComponentValueRef RangeTest MethodAnalysis TimePerformed AtPathologist SignaturePARATHYROID HORMONE INTACT 14(L)15 - 65 pg/mLLABCORPSpecimen (Source)Anatomical Location / Laterality Collection Method / VolumeCollection TimeReceived TimeBloodVenous blood specimen / Krbrlxm8102/22/2025 3:55 PM EST02/22/2025 Narrative [facility] - 02/24/2025 11:06 AM EST Performed at: 01 - [facility] ??[id number] Senior Financial Reporting Accountant: Beka Broussard PhD, Phone: ??[phone] Authorizing ProviderResult TypeResult StatusDauniversity hospitals [facility] BLOOD ORDERABLESFinal ResultPerforming OrganizationAddressty/State/ZIP CodePhone Number [facility] * Vitamin D 25 hydroxy Total (02/22/2025 3:55 PM EST)ComponentValueRef RangeTest MethodAnalysis TimePerformed AtPathologist SignatureVitamin D, 25-Zsqggwx03.3 30.0 - 100.0 ng/mLLABCORPComment: Vitamin D deficiency has been defined by the [place] of Medicine and an Endocrine Society practice guideline as a level of serum 25-OH vitamin D less than 20 ng/mL (1,2). The Endocrine Society went on to further define vitamin D insufficiency as a level between 21 and 29 ng/mL (2). 1. IOM ([place] of Medicine). 2010. Dietary reference ?? intakes for calcium and D. [place]: The ?? National Academies Press. 2. Sujata MF, Concetta NC, Jessica AMBROSIO, et al. ?? Evaluation, treatment, and prevention of vitamin D ?? deficiency: an Endocrine Society clinical practice ?? guideline. JCEM. 2010; 96(7):1911-30. Specimen (Source)Anatomical Location / LateralityCollection Method / Volume Collection TimeReceived TimeBloodVenous blood specimen / Duruupr6102/22/2025 3:55 PM EST02/22/2025 Narrative [facility] - 02/24/2025 11:06 AM EST Performed at: 01 - [facility] [address] ??[id number] Senior Financial Reporting Accountant: Beka Broussard PhD, Phone: ??[phone] Authorizing ProviderResult TypeResult StatusDadakotah Oviedo LAB BLOOD ORDERABLESFinal ResultPerforming OrganizationAddressCity/State/ZIP CodePhone Number [facility] * (ABNORMAL) Gamma GT (02/22/2025 3:55 PM EST)ComponentValueRef RangeTest Method Analysis TimePerformed AtPathologist HzumbaebePVB946(H)0 - 60 IU/[facility] Specimen (Source)Anatomical Location / LateralityCollection Method / Volume Collection TimeReceived TimeBloodVenous blood specimen / Zdevrsp0402/22/2025 3:55 PM EST02/22/2025 Narrative [facility] - 02/24/2025 11:06 AM EST Performed at: - [facility] [address] ??[id number] Senior Financial Reporting Accountant: Beka Broussard PhD, Phone: ??[phone] Authorizing ProviderResult TypeResult StatusDadakotah Oviedo N[facility] BLOOD ORDERABLESFinal ResultPerforming OrganizationAddressty/State/ZIP CodePhone Number [facility] documented in this encounter Visit Diagnoses Diagnosis Abnormal laboratory test- Primary Other abnormal clinical finding documented in this encounter Care Teams Team MemberRelationshipSpecialtyStart DateEnd Date Jamal Sharif MD [address] [place] [address] PCP - GeneralFamily Medicine09/27/22 Jamal Sharif MD [address] [place] [address] PCP - Medical [place] [employer]09/17/2411documented as of this encounter
--- OUTSIDE RECORDS SUMMARY | 2025-02-25 12:27 | XMS_ITS | Encounter Summary ---
Author Organization [facility] Address [address] [place] [address] Care Team Providers Care Metal Die Finisher Name Role Phone Jamal Sharif MD Primary Care Provider [phone] Jamal Sharif MD Unavailable [phone] Reason for Referral * Imaging (Routine) - AuthorizedSpecialtyDiagnoses / ProceduresReferred By ContactReferred To ContactRadiology Diagnoses Heart palpitations Chest pain, unspecified type Procedures Holter monitor Sarah Oviedo NP [address] [place] [address] Phone: tel: fax: Reyes [place] [address] [facility] [address] [address] Phone: tel: fax: Referral IDStatusReasonStart DateExpiration DateVisits RequestedVisits [id number] Encounter Details DateTypeDepartmentCare Team (Latest Contact Info)Txfiownegec94/07/2025Orders Only [facility] [address] [place] [address] Sarah Oviedo NP [address] [place] [address] Heart palpitations (Primary Dx); Chest pain, unspecified type Social History Tobacco UseTypesPacks/DayYears UsedDateSmoking Tobacco: FormerCigarettes Smokeless Tobacco: NeverAlcohol UseStandard Drinks/WeekCommentsYes2 (1 standard drink = 0.6 oz pure alcohol)Caffeine intake: 1 cups per day of coffee, [id number] Health LiteracyAnswerDate RecordedHow often do you need [...] relatives?Once a week11/07/2024How often do you attend rastafari or mosque services?Never11/07/2024Do you belong to any clubs or organizations such as rastafari groups, unions, fraternal or athletic groups, or school groups?No 11/07/2024How often do you attend meetings of the clubs or organizations you belong to?Never11/07/2024re you , , , , never , or living with a partner?Hymfgqf3311/07/2024UDIT-CAnswerDate RecordedQ1: How often do you have a [...] hard at all11/07/2024PHQ-2AnswerDate Recorded Patient Health Questionnaire-2 [id number] [place] of Occupational Health - Occupational Stress QuestionnaireAnswerDate RecordedDo you feel stress - tense, restless, nervous, or anxious, or unable to sleep at night because your mind is troubled all the time - these days?Only a pcuiin1511/07/2024Exercise Vital SignAnswerDate RecordedOn average, how many days [...] Plan of Treatment DateTypeDepartmentCare Team (Latest Contact Info)Agredohdxnk67/19/2025 3:20 PM ESTOffice Visit [facility] [address] [place] [address] Sarah Oviedo NP [address] [place] [address] NameTypePriorityAssociated DiagnosesOrder ScheduleHolter monitorImagingRoutine Heart palpitations Chest pain, unspecified type Expected: 02/22/2025 (Approximate), Expires: 02/22/2026documented as of this encounter Visit Diagnoses Diagnosis Heart palpitations- Primary Palpitations Chest pain, unspecified type documented in this encounter Care Teams Team MemberRelationshipSpecialtyStart DateEnd Date Jamal Sharif MD [address] [place] [address] PCP - GeneralFamily Medicine09/27/22 Jamal Sharif MD [address] [place] [address] PCP - Medical [place] [employer]09/17/2411documented as of this encounter
--- OUTSIDE RECORDS SUMMARY | 2025-02-25 12:27 | XMS_ITS | Encounter Summary ---
Author Organization [facility] Healthcare Address [address] [place] [address] Care Team Providers Care Outside B2B Sales Name Role Phone Jamal Sharif MD Primary Care Provider [phone] Jamal Sharif MD Unavailable [phone] Encounter Details DateTypeDepartmentCare Team (Latest Contact Info)Ljsxtfgoxgn71/31/2025Patient Outreach [facility] [address] [place] [phone] Noelle Shine LPN [address] [place] [address] Social History Tobacco UseTypesPacks/DayYears UsedDateSmoking Tobacco: FormerCigarettes Smokeless Tobacco: NeverAlcohol UseStandard Drinks/WeekCommentsYes2 (1 standard drink = 0.6 oz pure alcohol)Caffeine intake: 1 cups per day of coffee, [id number] Health LiteracyAnswerDate RecordedHow often do you need [...] relatives?Once a week11/07/2024How often do you attend voodoo or confucianist services?Never11/07/2024Do you belong to any clubs or organizations such as voodoo groups, unions, fraCladwell or athletic groups, or school groups?No 11/07/2024How often do you attend meetings of the clubs or organizations you belong to?Never11/07/2024re you , , , , never , or living with a partner?Pmghrpw9411/07/2024UDIT-CAnswerDate RecordedQ1: How often do you have a [...] hard at all11/07/2024PHQ-2AnswerDate Recorded Patient Health Questionnaire-2 [id number] hospital [place] of Occupational Health - Occupational Stress QuestionnaireAnswerDate RecordedDo you feel stress - tense, restless, nervous, or anxious, or unable to sleep at night because your mind is troubled all the time - these days?Only a jjbejr1711/07/2024Exercise Vital SignAnswerDate RecordedOn average, how many days [...] steady place to sleep or slept in [place] (including now)?No 05/25/2023Housing Stability Vital SignAnswerDate RecordedIn [...] on file documented as of this encounter Progress Notes * Noelle Rl, JAVA DEVELOPER WITH SECURITY CLEARANCE - 02/15/2025 11:26 AM EDT Images from the original note were not included. Pt to ER for rapid heart rate, intermittent chest pain, sob and dizziness. She admits that she did have a fall a few days prior. proofsheet corrector, EKG, labs and CXR done. Potassium was low at 2.8. Shewas given oral potassium pills in ER and has a FU with PCP 02/20/25. This has been evaluated at recent PCP OV also. Call to pt , message left tcb. <February 15, 2025, 11:38 - Noelle Shine LPN> Pt states that she feels better since taking the potassium. She has completed that and is taking Liquid IV mix. She states that she doesn't know how her potassium dropped. She states that she was drinking a lot of water. Denies any further CP or other s/s. Reminder of OV <February 18, 2025, 09:42- Noelle Shine LPN> Flowsheet Row Patient Outreach from 02/15/2025 in [facility] with Noelle Shine LPN Hospital Information ED, Hospital or Nursing Home Facility Discharge? ED Patient has been contacted within 2 days of being seen in the ED Yes Diagnosis Acute hypokalemia, chest pain, taschycardia Discharge Date 02/14/25 Discharged To: Home Setting Discharge Hospital [facility] Engagement Admission Date 02/14/25 Medications Discharge medications reviewed and reconciled from hospital? Yes Is the patient having any side effects they believe may be caused by any medication additions or changes? No Does the patient have all medications ordered at discharge? Yes Nursing Interventions Nurse provided patient education Prescription Comments Potassium 20mg BID Is the patient taking all medications as directed (includes completed medication regime)? Yes Nursing Interventions Nurse provided patient education Appointments Does the patient have a primary care provider? Yes Nursing Interventions Verified appointment date/time/provider [02/20/25] Does the patient have any upcoming specialty appointments? Not applicable Nursing Interventions Advised patient to keep appointment Self Management Does patient have home health? no Patient Teaching Does the patient have access to their discharge instructions? Yes Nursing Interventions Reviewed instructions with patient What is the patient's perception of their health status since discharge? Returned to baseline/stable Wrap Up Wrap Up Additional Comments proofsheet corrector, EKG, labs and CXR done documented in this encounter Plan of Treatment DateTypeDepartmentCare Team (Latest Contact Info)Fwtxzrpdtcf42/19/2025 3:20 PM ESTOffice Visit [facility] [address] [place] [phone] Sarah Oviedo NP [address] [place] [address] documented as of this encounter Visit Diagnoses Diagnosis Acute hypokalemia- Primary Hypopotassemia Chest pain, unspecified type Tachycardia Unspecified tachycardia Bipolar affective disorder in remission (HCC) documented in this encounter Care Teams Team MemberRelationshipSpecialtyStart DateEnd Date Jamal Sharif MD [address] [place] [address] [facility] - [facility] Jamal Sharif MD [address] [place] [address] PCP - Medical [facility]09/17/2411documented as of this encounter
--- OUTSIDE RECORDS SUMMARY | 2025-02-25 12:27 | XMS_ITS | Encounter Summary ---
Author Organization [facility] Address [address] [place] [address] Care Team Providers Care Secure Software Assessor Name Role Phone Jamal Sharif MD Primary Care Provider [phone] Jamal Sharif MD Unavailable [phone] Encounter Details DateTypeDepartmentCare Team (Latest Contact Info)Pfdnyryibfx98/05/2025amboo flowsheet [facility] [place] [facility] [address] [place] [address] Sarah Oviedo, SAIL CUTTER [address] [place] [address] Social History Tobacco UseTypesPacks/DayYears UsedDateSmoking Tobacco: FormerCigarettes Smokeless Tobacco: NeverAlcohol UseStandard Drinks/WeekCommentsYes2 (1 standard drink = 0.6 oz pure alcohol)Caffeine intake: 1 cups per day of coffee, [id number] Health LiteracyAnswerDate RecordedHow often do you need [...] relatives?Once a week11/07/2024How often do you attend methodist or roman catholic services?Never11/07/2024Do you belong to any clubs or organizations such as methodist groups, unions, fraTweetPhoto or athletic groups, or school groups?No 11/07/2024How often do you attend meetings of the clubs or organizations you belong to?Never11/07/2024re you , , , , never , or living with a partner?Svkewhc4511/07/2024UDIT-CAnswerDate RecordedQ1: How often do you have a [...] hard at all11/07/2024PHQ-2AnswerDate Recorded Patient Health Questionnaire-2 Ijbel121F[facility] [place] of Occupational Health - Occupational Stress QuestionnaireAnswerDate RecordedDo you feel stress - tense, restless, nervous, or anxious, or unable to sleep at night because your mind is troubled all the time - these days?Only a mspuko0011/07/2024Exercise Vital SignAnswerDate RecordedOn average, how many days [...] steady place to sleep or slept in [place] (including now)?No 05/25/2023Housing Stability Vital SignAnswerDate RecordedIn the last 12 months, was there a time when you were not able to pay the mortgage or rent on time?No 11/07/2024In the past 12 months, how many times have you moved where you were living?t any time in the past 12 months, were you homeless or living in a penitentiary (including now)?No11/07/2024CommentsNoSex and Gender InformationValueDate RecordedSex Assigned at BirthNot on fileLegal SexFemale 06/30/2022 7:22 PM EDTGender IdentityNot on fileSexual OrientationNot on file documented as of this encounter Plan of Treatment DateTypeDepartmentCare Team (Latest Contact Info)Ivautsveefi75/19/2025 3:20 PM ESTOffice Visit [facility] [address] [place] [phone] Sarah Oviedo NP [address] [place] [address] documented as of this encounter Visit Diagnoses Not on filedocumented in this encounter Care Teams Team MemberRelationshipSpecialtyStart DateEnd Date Jamal Sharif MD [address] [place] [address] [facility] - [facility] Jamal Sharif MD [address] [place] [address] PCP - Medical [facility]09/17/2411documented as of this encounter
--- OUTSIDE RECORDS SUMMARY | 2025-02-25 12:27 | XMS_ITS | Encounter Summary ---
Author Organization [facility] Address [address] [place] [address] Care Team Providers Care Financial Coach Name Role Phone Jamal Sharif MD Primary Care Provider [phone] Jamal Sharif MD Unavailable [phone] Encounter Details DateTypeDepartmentCare Team (Latest Contact Info)Unuwjogtmsj12/06/2025Results Follow-Up [facility] [place] [facility] [address] [place] [address] Sarah Oviedo, TRIMMING ASSEMBLER [address] [place] [address] Comprehensive metabolic panel Social History Tobacco UseTypesPacks/DayYears UsedDateSmoking Tobacco: FormerCigarettes Smokeless Tobacco: NeverAlcohol UseStandard Drinks/WeekCommentsYes2 (1 standard drink = 0.6 oz pure alcohol)Caffeine intake: 1 cups per day of coffee, [id number] Health LiteracyAnswerDate RecordedHow often do you need [...] relatives?Once a week11/07/2024How often do you attend christianity or anglican services?Never11/07/2024Do you belong to any clubs or organizations such as christianity groups, unions, fraLeisureLink or athletic groups, or school groups?No 11/07/2024How often do you attend meetings of the clubs or organizations you belong to?Never11/07/2024re you , , , , never , or living with a partner?Xfrsubb3911/07/2024UDIT-CAnswerDate RecordedQ1: How often do you have a [...] hard at all11/07/2024PHQ-2AnswerDate Recorded Patient Health Questionnaire-2 Jpuaf186Finameric[facility] hospital [place] of Occupational Health - Occupational Stress QuestionnaireAnswerDate RecordedDo you feel stress - tense, restless, nervous, or anxious, or unable to sleep at night because your mind is troubled all the time - these days?Only a fgyelg6211/07/2024Exercise Vital SignAnswerDate RecordedOn average, how many days [...] steady place to sleep or slept in [facility] (including now)?No 05/25/2023Housing Stability Vital SignAnswerDate RecordedIn [...] Plan of Treatment DateTypeDepartmentCare Team (Latest Contact Info)Aqurrgafsgw70/19/2025 3:20 PM ESTOffice Visit [facility] [address] [place] [phone] Sarah Oviedo NP [address] [place] [address] documented as of this encounter Visit Diagnoses Not on filedocumented in this encounter Care Teams Team MemberRelationshipSpecialtyStart DateEnd Date Jamal Sharif MD [address] [place] [address] [facility] - [facility] Jamal Sharif MD [address] [place] [address] PCP - Medical [facility]09/17/2411documented as of this encounter
--- OUTSIDE RECORDS SUMMARY | 2025-02-25 12:27 | XMS_ITS | Encounter Summary ---
Author Organization [facility] Address [address] [place] [address] Care Team Providers Care Tumbler Machine Operator Name Role Phone Jamal Sharif MD Primary Care Provider [phone] Jamal Sharif MD Unavailable [phone] Encounter Details DateTypeDepartmentCare Team (Latest Contact Info)Njnkglbmtww36/07/2025Results Follow-Up [facility] [place] [facility] [address] [place] [address] Sarah Oviedo, STONE MASON [address] [place] [address] TSH RFX ON ABNORMAL TO FREE T4, Comprehensive metabolic panel, CBC and differential Social History Tobacco UseTypesPacks/DayYears UsedDateSmoking Tobacco: FormerCigarettes Smokeless Tobacco: NeverAlcohol UseStandard Drinks/WeekCommentsYes2 (1 standard drink = 0.6 oz pure alcohol)Caffeine intake: 1 cups per day of coffee, [id number] Health LiteracyAnswerDate RecordedHow often do you need [...] relatives?Once a week11/07/2024How often do you attend spiritism or baptism services?Never11/07/2024Do you belong to any clubs or organizations such as spiritism groups, unions, fraternal or athletic groups, or school groups?No 11/07/2024How often do you attend meetings of the clubs or organizations you belong to?Never11/07/2024re you , , , , never , or living with a partner?Uvbpcqo7411/07/2024UDIT-CAnswerDate RecordedQ1: How often do you have a [...] hard at all11/07/2024PHQ-2AnswerDate Recorded Patient Health Questionnaire-2 Vffqj427Fintimpanog[facility] [place] of Occupational Health - Occupational Stress QuestionnaireAnswerDate RecordedDo you feel stress - tense, restless, nervous, or anxious, or unable to sleep at night because your mind is troubled all the time - these days?Only a kmiets1411/07/2024Exercise Vital SignAnswerDate RecordedOn average, how many days [...] steady place to sleep or slept in [facility] (including now)?No 05/25/2023Housing Stability Vital SignAnswerDate RecordedIn [...] Plan of Treatment DateTypeDepartmentCare Team (Latest Contact Info)Dnmuklqcigq28/19/2025 3:20 PM ESTOffice Visit [facility] [address] [place] [address] Sarah Oviedo NP [address] [place] [address] documented as of this encounter Visit Diagnoses Not on filedocumented in this encounter Care Teams Team MemberRelationshipSpecialtyStart DateEnd Date Jamal Sharif MD [address] [place] [address] [facility] - [facility] Jamal Sharif MD [address] [place] [address] PCP - Medical [place] [employer]09/17/2411documented as of this encounter
--- OUTSIDE RECORDS SUMMARY | 2025-02-25 12:27 | XMS_ITS | Encounter Summary ---
Author Organization [facility] Address [address] [place] [address] Care Team Providers Care Skid Worker Name Role Phone Jamal Sharif MD Primary Care Provider [phone] Jamal Sharif MD Unavailable [phone] Encounter Details DateTypeDepartmentCare Team (Latest Contact Info)Abjhfkeqibn05/30/2025linisync Result Encounter [facility] Department Unsolicited Sarah Oviedo, FILTER CHANGER [address] [place], [place] [id number] Social History Tobacco UseTypesPacks/DayYears UsedDateSmoking Tobacco: FormerCigarettes Smokeless Tobacco: NeverAlcohol UseStandard Drinks/WeekCommentsYes2 (1 standard drink = 0.6 oz pure alcohol)Caffeine intake: 1 cups per day of coffee, [id number] Health LiteracyAnswerDate RecordedHow often do you need [...] relatives?Once a week11/07/2024How often do you attend uatsdin or evangelical services?Never11/07/2024Do you belong to any clubs or organizations such as uatsdin groups, unions, [employer] or athletic groups, or school groups?No 11/07/2024How often do you attend meetings of the clubs or organizations you belong to?Never11/07/2024re you , , , , never , or living with a partner?Wgrager7211/07/2024UDIT-CAnswerDate RecordedQ1: How often do you have a [...] hard at all11/07/2024PHQ-2AnswerDate Recorded Patient Health Questionnaire-2 [id number] [employer] of Occupational Health - Occupational Stress QuestionnaireAnswerDate RecordedDo you feel stress - tense, restless, nervous, or anxious, or unable to sleep at night because your mind is troubled all the time - these days?Only a jnoddw7711/07/2024Exercise Vital SignAnswerDate RecordedOn average, how many days [...] steady place to sleep or slept in [place] (including now)?No 05/25/2023Housing Stability Vital SignAnswerDate RecordedIn the last 12 months, was there a time when you were not able to pay the mortgage or rent on time?No 11/07/2024In the past 12 months, how many times have you moved where you were living?t any time in the past 12 months, were you homeless or living in a usp (including now)?No11/07/2024CommentsNoSex and Gender InformationValueDate RecordedSex Assigned at BirthNot on fileLegal SexFemale 06/30/2022 7:22 PM EDTGender IdentityNot on fileSexual OrientationNot on file documented as of this encounter Plan of Treatment DateTypeDepartmentCare Team (Latest Contact Info)Bvwlslmjfcc75/19/2025 3:20 PM ESTOffice Visit [facility] [address] [place] [address] Sarah Oviedo FILTER CHANGER [address] [place] [address] documented as of this encounter Procedures Procedure NamePriorityDate/TimeAssociated DiagnosisComments[facility] WITH T4FR DTPEMJAdkbnyo29/30/2025 2:32 PM EDT [facility] RCWXXbnyrly66/30/2025 2:32 PM EDT [facility] XPKVfximyx18/30/2025 2:32 PM EDT [facility] CBC W/ AUTO DHAVVecwvxb40/30/2025 2:32 PM EDT documented in this encounter Results * [facility] TSH WITH T4FR REFLEX (02/14/2025 2:32 PM EDT)ComponentValueRef RangeTest MethodAnalysis TimePerformed AtPathologist SignatureMEDICAL [facility] TSH2.410.34 - 5.60 mcIU/mLBANNER CARDON CHILDREN'S MEDICAL CENTERpecimen (Source)Anatomical Location / LateralityCollection Method / VolumeCollection TimeReceived FemtLzsiw95/30/2025 2:32 PM EDT1 3:07 PM EDT [facility]ative [facility] - 02/14/20[facility] 3:54 PM EDT Original Ordering Provider: HOLLAND OVIEDO Authorizing ProviderResult TypeResult StatusDadakotah Oviedo NPCLINISYNCFinal ResultPerforming OrganizationAddressCity/State/ZIP CodePhone Number [facility] * [facility] EGFR (02/14/2025 2:32 PM EDT)ComponentValueRef RangeTest MethodAnalysis TimePerformed AtPathologist SignatureMED[facility] CASW218>=59 mL/min/1.73 m2[facility] Specimen (Source)Anatomical Location / LateralityCollection Method / Volume Collection TimeReceived DqzkSoojf78/30/2025 2:32 PM EDT1 3:07 PM EDT Narrative [facility] - 02/14/2025 3:39 PM EDT Original Ordering Provider: HOLLAND OVIEDO Authorizing ProviderResult TypeResult StatusSarah Oviedo NPCLINISYNCFinal ResultPerforming OrganizationAddressCity/State/ZIP CodePhone Number [facility] * (ABNORMAL) [facility] CMP (02/14/2025 2:32 PM EDT)ComponentValueRef RangeTest Method Analysis TimePerformed AtPathologist SignatureMED[facility] GLUCOSE ZOE0903 - 199 mg/dL [facility] BUN65 - 21 mg/dLUN[facility]ERSITY [facility] CREATININE0.60.5 - 1.3 mg/dLUNIVERSITY [facility]ICH[facility] CALCIUM LVL8.98.9 - 11.1 mg/dLUNIVERSITY OF [facility]ICH[facility] SODIUM [id number] - 145 mmol/LFTMCFTM POTASSIUM 3.4(L)3.5 - 5.3 mmol/LFTMCFTMC ZQLDMIYH704933 - 111 mmol/LFTMCFTMC UZ48359 - 31 mmol/LFTMCFTMC ALK MVGW412(H)21 - 98 Int._Unit/LFTMTMC BILI TOTAL0.40.0 - 1.1 mg/dLUNIVERSITY OF MICHIGAN [facility] ALBUMIN LVL4.43.3 - 5.0 gm/dLUN[facility]ERSITY [facility] TOTAL PROTEIN6.96.0 - 7.8 gm/dLUN[facility]ERSITY [facility] BNM106 - 46 Int._Unit/LFTMCFTMC AST95 - 43 Int._Unit/LFTMC [facility] BUN/CREAT KMUSO9596 - 20 No UnitsUNIVERSITY OF MICHIGAN HEALTH OSCQ493 - 16 mEq/LFTRINITY [facility] GLOBULIN2.51.4 - 4.0 gm/dLUNIVERSITY OF [facility] A/G RATIO1.81.1 - 2.2FTMCSpecimen (Source) Anatomical Location / LateralityCollection Method / VolumeCollection Time Received ZbpaPzazy87/30/2025 2:32 PM EDT1 3:07 PM EDT Narrative [facility] - 02/14/2025 3:39 PM EDT Original Ordering Provider: HOLLAND OVIEDO Authorizing ProviderResult TypeResult StatusDaniromana Oviedo NPCLINISYNCFinal ResultPerforming OrganizationAddressCity/State/ZIP CodePhone Number [facility] * [facility] CBC W/ AUTO DIFF (02/14/2025 2:32 PM EDT)ComponentValueRef RangeTest MethodAnalysis TimePerformed AtPathologist SignatureWBC7.34.0 - 11.0 E9/LFTMC RBC4.64.3 - 5.9 E12/CHNKFKWR86.912.0 - 16.0 gm/vXILDIMYR73.634.0 - 46.0 %[facility] RDW12.110.9 - 14.2 %DHUGQDA01.327.0 - 34.0 wvQXHJOAYP97.031.4 - 36.0 gm/dLFTMC MCV86.780.0 - 100.0 fLFTMCMPV7.96.4 - 10.8 kPJIDOVAPZCMOW032.0150.0 - 500.0 E9/LFTMCNEUTRO AUTO51.936.0 - 75.0 %FTMCLYMPH AUTO31.414.0 - 50.0 %FTMCMONO AUTO10.34.0 - 14.0 %FTMCEOS AUTO5.50.0 - 8.0 %FTMCBASOPHIL AUTO0.90.0 - 2.0 % FTMCNEUTRO ABSOLUTE3.82.0 - 7.5 E9/LFTMCLYMPH ABSOLUTE2.31.0 - 4.0 E9/LFTMC MONO ABSOLUTE0.80.2 - 1.0 E9/LFTMCEOS ABSOLUTE0.40.0 - 0.5 E9/LFTMCBASOPHIL ABSOLUTE0.10.0 - 0.2 E9/LFTMCSpecimen (Source)Anatomical Location / Laterality Collection Method / VolumeCollection TimeReceived HaltCqqne40/30/2025 2:32 PM EDT1 3:06 PM EDT Narrative [facility] - 02/14/2025 3:16 PM EDT Original Ordering Provider: HOLLAND OVIEDO Authorizing ProviderResult TypeResult StatusDaniromana Oviedo NPCLINISYNCFinal ResultPerforming OrganizationAddressCity/State/ZIP CodePhone Number [facility] documented in this encounter Visit Diagnoses Not on filedocumented in this encounter Care Teams Team MemberRelationshipSpecialtyStart DateEnd Date Jamal Sharif MD [address] [place] [address] PCP - GeneralFamily Medicine09/27/22 Jamal Sharif MD [address] [place] [address] PCP - Medical [place] [employer]09/17/2411documented as of this encounter
--- OUTSIDE RECORDS SUMMARY | 2025-02-25 12:27 | XMS_ITS | Encounter Summary ---
Author Organization [facility] Address [address] [place] [address] Care Team Providers Care Reel Operator Name Role Phone Jamal Sharif MD Primary Care Provider [phone] Jamal Sharif MD Unavailable [phone] Encounter Details DateTypeDepartmentCare Team (Latest Contact Info)Licvldpcuws17/31/2025Results Follow-Up [facility] [address] [place] [address] Sarah Oviedo, ELECTRICAL UNIT REBUILDER [address] [place] [address] [facility] CBC W/ AUTO DIFF, [facility] CMP, [facility] EGFR, [facility] TSH WITH T4FR REFLEX Social History Tobacco UseTypesPacks/DayYears UsedDateSmoking Tobacco: FormerCigarettes Smokeless Tobacco: NeverAlcohol UseStandard Drinks/WeekCommentsYes2 (1 standard drink = 0.6 oz pure alcohol)Caffeine intake: 1 cups per day of coffee, [id number] Health LiteracyAnswerDate RecordedHow often do you need [...] relatives?Once a week11/07/2024How often do you attend muslim or advent services?Never11/07/2024Do you belong to any clubs or organizations such as muslim groups, unions, [employer] or athletic groups, or school groups?No 11/07/2024How often do you attend meetings of the clubs or organizations you belong to?Never11/07/2024re you , , , , never , or living with a partner?Jcnalok6411/07/2024UDIT-CAnswerDate RecordedQ1: How often do you have a [...] hard at all11/07/2024PHQ-2AnswerDate Recorded Patient Health Questionnaire-2 [id number] [place] of Occupational Health - Occupational Stress QuestionnaireAnswerDate RecordedDo you feel stress - tense, restless, nervous, or anxious, or unable to sleep at night because your mind is troubled all the time - these days?Only a aataaj3511/07/2024Exercise Vital SignAnswerDate RecordedOn average, how many days [...] steady place to sleep or slept in [facility] (including now)?No 05/25/2023Housing Stability Vital SignAnswerDate RecordedIn the last 12 months, was there a time when you were not able to pay the mortgage or rent on time?No 11/07/2024In the past 12 months, how many times have you moved where you were living?t any time in the past 12 months, were you homeless or living in a half-way (including now)?No11/07/2024CommentsNoSex and Gender InformationValueDate RecordedSex Assigned at BirthNot on fileLegal SexFemale 06/30/2022 7:22 PM EDTGender IdentityNot on fileSexual OrientationNot on file documented as of this encounter Plan of Treatment DateTypeDepartmentCare Team (Latest Contact Info)Wqzszxlbapz28/19/2025 3:20 PM ESTOffice Visit [facility] [address] [place] [phone] Sarah Oviedo ELECTRICAL UNIT REBUILDER [address] [place] [address] NameTypePriorityAssociated DiagnosesOrder ScheduleComprehensive metabolic panel LabRoutine Low blood potassium Expected: 02/15/2025 (Approximate), Expires: 02/15/2026documented as of this encounter Visit Diagnoses Diagnosis Low blood potassium- Primary Hypopotassemia documented in this encounter Care Teams Team MemberRelationshipSpecialtyStart DateEnd Date Jamal Sharif MD [address] [place] [address] PCP - GeneralFamily Medicine09/27/22 Jamal Sharif MD [address] [place] [address] PCP - Medical [place] [employer]09/17/2411documented as of this encounter
--- OUTSIDE RECORDS SUMMARY | 2025-02-25 12:27 | XMS_ITS | Encounter Summary ---
Author Organization [facility] Address [address] [place] [address] Care Team Providers Care Mold Filling Operator Name Role Phone Jamal Sharif MD Primary Care Provider [phone] Jamal Sharif MD Unavailable [phone] Reason for Visit * ReasonOnset DateCommentsRequest For Order(s)02/15/2025 Encounter Details DateTypeDepartmentCare Team (Latest Contact Info)Uywmlmxbpxo66/31/2025Telephone [facility] [address] [place] [address] Leslee Quezada Request For Order(s) Social History Tobacco UseTypesPacks/DayYears UsedDateSmoking Tobacco: FormerCigarettes Smokeless Tobacco: NeverAlcohol UseStandard Drinks/WeekCommentsYes2 (1 standard drink = 0.6 oz pure alcohol)Caffeine intake: 1 cups per day of coffee, [id number] Health LiteracyAnswerDate RecordedHow often do you need [...] relatives?Once a week11/07/2024How often do you attend episcopalian or jew services?Never11/07/2024Do you belong to any clubs or organizations such as episcopalian groups, unions, [employer]Sonics or athletic groups, or school groups?No 11/07/2024How often do you attend meetings of the clubs or organizations you belong to?Never11/07/2024re you , , , , never , or living with a partner?Qunvlaz7611/07/2024UDIT-CAnswerDate RecordedQ1: How often do you have a [...] hard at all11/07/2024PHQ-2AnswerDate Recorded Patient Health Questionnaire-2 [id number] health care system [employer] of Occupational Health - Occupational Stress QuestionnaireAnswerDate RecordedDo you feel stress - tense, restless, nervous, or anxious, or unable to sleep at night because your mind is troubled all the time - these days?Only a tiirrw8511/07/2024Exercise Vital SignAnswerDate RecordedOn average, how many days [...] steady place to sleep [facility] ([facility])?No 05/25/2023Housing Stability Vital SignAnswerDate RecordedIn the last 12 months, was there a time when you were not able to pay the mortgage or rent on time?No 11/07/2024In the past 12 months, how many times have you moved where you were living?t any time in the past 12 months, were you homeless or living in a prison (including now)?No11/07/2024CommentsNoSex and Gender InformationValueDate RecordedSex Assigned at BirthNot on fileLegal SexFemale 06/30/2022 7:22 PM EDTGender IdentityNot on fileSexual OrientationNot on file documented as of this encounter Miscellaneous Notes * Telephone Encounter - Leslee Quezada - 02/15/2025 2:36 PM EDT Pt notified. * Telephone Encounter - Mckenzie Oviedo NP - 02/15/2025 12:28 PM EDT Please let her know I have sent over an order for the holter to [facility]. Please know if you are having chest pains you should go to the ER. * Addendum Note - Mckenzie Oviedo NP - 02/15/2025 11:15 AM EDTAddended by: MCKENZIE OVIEDO on: 02/15/2025 11:15 AM Modules accepted: Orders * Telephone Encounter - Leslee Tenaroe - 02/15/2025 9:44 AM EDT Pt's insurance is not in network with [facility] [place] [place] so her Echo order has been faxed to [facility] - pt stated they are in network. Also, pt stated she is still having a lot of chest pains and heart palpitations and was wondering if it would be a good idea to get a heart monitor while waiting to get in with cardiology. Please advise. documented in this encounter Plan of Treatment DateTypeDepartmentCare Team (Latest Contact Info)Zmplpakemtu45/19/2025 3:20 PM ESTOffice Visit [facility] [address] [place] [address] Mckenzie Oviedo NP [address] [place] [address] documented as of this encounter Visit Diagnoses Diagnosis Heart palpitations- Primary Palpitations documented in this encounter Care Teams Team MemberRelationshipSpecialtyStart DateEnd Date Jamal Sharif MD [address] [place] [address] PCP - GeneralFamily Medicine09/27/22 Jamal Sharif MD [address] [place] [address] PCP - Medical [place] [employer]09/17/2411documented as of this encounter
--- OUTSIDE RECORDS SUMMARY | 2025-02-25 12:27 | XMS_ITS | Encounter Summary ---
Author Organization [facility] Address [address] [place] [address] Care Team Providers Care Protective Officer Name Role Phone Jamal Sharif MD Primary Care Provider [phone] Jamal Sharif MD Unavailable [phone] Encounter Details DateTypeDepartmentCare Team (Latest Contact Info)Bejiruhwbuc63/05/2025Travel Social History Tobacco UseTypesPacks/DayYears UsedDateSmoking Tobacco: FormerCigarettes Smokeless Tobacco: NeverAlcohol UseStandard Drinks/WeekCommentsYes2 (1 standard drink = 0.6 oz pure alcohol)Caffeine intake: 1 cups per day of coffee, [id number] Health LiteracyAnswerDate RecordedHow often do you need [...] relatives?Once a week11/07/2024How often do you attend zoroastrianism or yazidi services?Never11/07/2024Do you belong to any clubs or organizations such as zoroastrianism groups, unions, fraternal or athletic groups, or school groups?No 11/07/2024How often do you attend meetings of the clubs or organizations you belong to?Never11/07/2024re you , , , , never , or living with a partner?Fvpikfs9811/07/2024UDIT-CAnswerDate RecordedQ1: How often do you have a [...] hard at all11/07/2024PHQ-2AnswerDate Recorded Patient Health Questionnaire-2 Uxhne115Finprimary [facility] hospital [place] of Occupational Health - Occupational Stress QuestionnaireAnswerDate RecordedDo you feel stress - tense, restless, nervous, or anxious, or unable to sleep at night because your mind is troubled all the time - these days?Only a xyqzgy0111/07/2024Exercise Vital SignAnswerDate RecordedOn average, how many days [...] were you homeless or living in a long term (including now)?No11/07/2024CommentsNoSex and Gender InformationValueDate RecordedSex Assigned at BirthNot on fileLegal SexFemale 06/30/2022 7:22 PM EDTGender IdentityNot on fileSexual OrientationNot on file documented as of this encounter Plan of Treatment DateTypeDepartmentCare Team (Latest Contact Info)Fculfbehhfd98/19/2025 3:20 PM ESTOffice Visit [facility] [address] [place] [address] Sarah Oviedo NP [address] [place] [address] documented as of this encounter Visit Diagnoses Not on filedocumented in this encounter Care Teams Team MemberRelationshipSpecialtyStart DateEnd Date Jamal Sharif MD [address] [place] [address] PCP - GeneralFamily Medicine09/27/22 Jamal Sharif MD [address] [place] [address] PCP - Medical [place] [employer]09/17/2411documented as of this encounter
--- NOTE | 2025-02-25 12:44 | CA_ITS ---
Patient Name: YARELI MENDOZA MR#: [id number] : 1985 Exam Date: 02/25/2025 Ordering Doctor: MCKENZIE HUFF ECHOCARDIOGRAM REPORT PROCEDURE: CA ECHO DOPPLER COMPLETE INDICATIONS: Palpitations COMPARISON: None. DESCRIPTION: COMPLETE ECHOCARDIOGRAM Real-time transthoracic echocardiography with 2D, M-mode, spectral and color flow Doppler performed. QUALITY: Technical quality was good. LEFT VENTRICLE: Normal chamber size. Normal left ventricular wall thickness. LV EF: Global left ventricular systolic function is normal; visually estimated ejection fraction is 55 to 60%. No significant wall motion abnormalities. DIASTOLIC: Normal diastolic function. ATRIAL SEPTUM: Inadequately seen. LEFT ATRIUM: Normal chamber size. RIGHT ATRIUM: Normal chamber size. RIGHT VENTRICLE: Normal chamber size. Normal right ventricular systolic function. TRICUSPID VALVE: Normal mobility and thickness. Trivial regurgitation. No evidence of pulmonary hypertension. RVSP is 21mmHg. MITRAL VALVE: Normal mobility and thickness. No evidence of mitral valve stenosis. There is no mitral annular calcification. Trivial mitral regurgitation. AORTIC VALVE: Normal trileaflet appearance. No visible sclerosis. Normal leaflet mobility. No evidence of aortic valve stenosis. No aortic regurgitation. AORTIC ROOT: Normal diameter and appearance. PULMONIC VALVE: Normal thickness and mobility. No stenosis. Trivial regurgitation. PERICARDIUM: No evidence of pericardial effusion. IVC: Collapses with inspiration. Normal size measuring 1.8cm. CONCLUSION: Global left ventricular systolic function is normal; visually estimated ejection fraction is 55 to 60% Normal right ventricular size and systolic function Normal diastolic function The left atrium is normal in size No significant valvular abnormalities Adult Echocardiography Procedure Report Left Ventricle LVEDD (3.7 - 5.6 cm): 4.35 cm LVESD (2.2 - 4.0 cm): 2.76 cm LVIVS thickness (0.6 - 1.2 cm): 0.76 cm LVPW thickness (0.5 - 1.0 cm): 0.73 cm e': 0.14 m/s E - e': 3.86 LVOT Max Gradient: 2.94 mm[Hg] LVOT Area (cm2): 0.86 m/s Peak Velocity (LVOT): 0.86 m/s Mean Velocity (LVOT): 0.60 m/s LVOT Diameter 2.14 cm Left Ventricular Ejection Fraction: 66.95 % Left Atrium LA Volume Index (2D A2C): 18.27 ml/m2 Left Atrium Systolic Dimension: 3.20 cm Mitral Valve MV E to A Ratio: 1.39 MV Max Gradient: MV Mean Gradient: Mitral Valve A-Wave Peak Velocity: 0.38 m/s Mitral Valve E-Wave Peak Velocity: 0.54 m/s Cardiovascular Orifice Area: Right Ventricle RV Internal Diastolic Dimension: 3.56 cm Aorta AO Root Diam: 2.55 cm Ascending Ao Diam: 2.22 cm Aortic Valve AoV Area (Peak Lexa): 3.05 cm2, 3.05 cm2 AoV Area (VTI): 3.20 cm2, 3.20 cm2 Deceleration Lincoln: Pressure Half-Time: Peak Velocity(Antegrade Flow): 1.01 m/s Peak Gradient(Antegrade Flow): 4.09 mm[Hg] Mean Velocity(Antegrade Flow): 0.74 m/s Mean Gradient(Antegrade Flow): 2.45 mm[Hg] Velocity Time Integral: 18.56 cm Tricuspid Valve Peak Velocity (Regurgitant Flow): 2.00 m/s, 2.12 m/s, 2.17 m/s Peak Velocity: Pulmonic Valve Mean Gradient: 3.16 mm[Hg], 2.94 mm[Hg] Mean Velocity: 0.87 m/s, 0.84 m/s Peak Velocity: 1.03 m/s Peak Gradient: 4.38 mm[Hg], 4.09 mm[Hg] Right Atrium Right Atrium Systolic Pressure: 26.11 ml, 26.11 ml Dictated by: Ramón Brunson M.D. on 02/25/2025 at 17:44 Approved by: Ramón Brunson M.D. on 02/25/2025 at 17:48
== END 2025-02-25 12:24 | disposition home or self-care (01) ==
LOC: CARD 12:23
PROVIDERS: PCP Nurse Practitioner Family; Visit Provider Nurse Practitioner Family
DX: R00.2 Palpitations (principal)
CPT/HCPCS: 93242; 93246; 93306